=== PATIENT | male | born 1940 | race Caucasian/White ===

== ENCOUNTER 2022-08-04 17:08 | Outpatient (CLI) | payer MEDICARE, OTHER | END 2022-08-04 17:09 | disposition left against medical advice (07) | LOC: EMS 17:08 | DX: R53.1 Weakness (principal); R53.83 Other fatigue; Z72.820 Sleep deprivation ==

== ENCOUNTER 2022-08-07 18:31 | Emergency (ER) | payer MEDICARE, OTHER ==
[2022-08-07] MEDS ORDERED: ALPRAZolam 0.25 MG TABLET PO STA (19:48)
--- NOTE | 2022-08-07 19:51 | ED Physician Documentation ---
History of Present Illness - Stated complaint Stated Complaint: UNABLE TO SLEEP - Chief complaint Chief Complaint: General - History obtained from History obtained from: Patient - Additonal information Additional information: 82-year-old gentleman presents accompanied by his as he ran out or misplaced his alprazolam about a week ago and has not been able to sleep. He also has not been eating or drinking well. He had been taking it for years, half a milligram in the afternoon and 1 mg at bedtime. He is considering moving here from [facility] here. Review of Systems Constitutional: denies: Fever, Chills Cardiac: denies: Chest pain / pressure, Palpitations Respiratory: denies: Dyspnea, Cough GI: denies: Abdominal Pain PD PAST MEDICAL HISTORY - Present Medications Home Medications: Ambulatory Orders Medication Instructions Recorded Confirmed Alprazolam [Xanax] 1 mg PO BID #10 tablet 08/07/22 - Allergies Allergies/Adverse Reactions: Allergies Allergy/AdvReac Type Severity Reaction Status Date / Time No Known Drug Allergies Allergy Verified 08/07/22 18:45 PD ED PE NORMAL - Vitals Vital signs reviewed: Yes - General General: Alert and oriented X 3, No acute distress - Neuro Neuro: Alert and oriented X 3, Normal speech - Psych Psych: Normal mood, Normal affect Results - Vitals Vitals: Vital Signs - 24 hr 08/07/22 08/07/22 18:47 19:53 Temperature 36.3 C L 36.4 C L Heart Rate 89 82 Respiratory 18 18 Rate Blood Pressure 154/66 H 149/65 H O2 Saturation 97 97 Oxygen O2 Source Room air PD MEDICAL DECISION MAKING - ED course ED course: 82-year-old gentleman presents with benzodiazepine withdrawal. Discussed with him that while I would be happy to give him a short prescription for his refill, it is not customary or safe to be getting refills for controlled substances from the emergency department and further refills would need to come from his primary care physician. Departure - Departure Disposition: 01 Home, Self Care Clinical Impression: Acute insomnia Condition: Good Record reviewed to determine appropriate education?: Yes Instructions: ED Withdrawal Benzodiazepine Follow-Up: [facility] [Provider Group] Prescriptions: Alprazolam [Xanax] 1 mg PO BID #10 tablet Comments: I sent a prescription for a weeks worth of your medication to the [facility]. It is located at [address] [place] [address], [id number] . Per policy we cannot give you other refills of chronic narcotics or sedatives, further refills must come from your primary care physician. Discharge Date/Time: 08/07/22 19:57
[2022-08-07 19:54] VITALS: BP 149/65
== END 2022-08-07 19:57 | disposition home or self-care (01) ==
LOC: ED 18:31
DX: F13.239 Sedative, hypnotic or anxiolytic dependence with withdrawal, unspecified (principal); T42.4X6A Underdosing of benzodiazepines, initial encounter; Z91.138 Patient's unintentional underdosing of medication regimen for other reason; G47.00 Insomnia, unspecified
CPT/HCPCS: 99282; A9270

== ENCOUNTER 2022-10-02 23:12 | Emergency (ER) | payer MEDICARE ==
--- NOTE | 2022-10-03 01:57 | ED Physician Documentation ---
History of Present Illness - Stated complaint Stated Complaint: ANXIETY/CAN'T SLEEP/IRREG HR - Chief complaint Chief Complaint: Cardiac - History obtained from History obtained from: Patient, Family (spouse) - History of Present Illness Timing: How many days ago (3-4) Pain level now: 0 - Additonal information Additional information: patient says he ran out of his alprazolam 3-4 days ago and for the past 2 nights has been unable to sleep as a result. His prescribing physician is in [place] and he (and his , who is in ED at bedside) say that he has a refill due in the next several days. Patient c/o feeling anxious, generalized malaise. Patient was T+R from this ED 08/07 for same problem. Review of Systems Neurologic: reports: Reviewed and negative Psychiatric: reports: Anxiety, Insomnia PD PAST MEDICAL HISTORY - Past Medical History Past Medical History: Yes Cardiovascular: Congestive heart failure, Hypertension, High cholesterol, Atrial flutter, Atrial fibrillation Psych: Anxiety - Present Medications Home Medications: Ambulatory Orders Medication Instructions Recorded Confirmed Alprazolam [Xanax] 1 mg PO BID #10 tablet 08/07/22 Alprazolam [Xanax] 1 mg PO BID #10 tablet 10/03/22 - Allergies Allergies/Adverse Reactions: Allergies Allergy/AdvReac Type Severity Reaction Status Date / Time No Known Drug Allergies Allergy Verified 10/02/22 23:25 - Social History Does the pt smoke?: No Smoking Status: Never smoker PD ED PE NORMAL - Vitals Vital signs reviewed: Yes - General General: Alert and oriented X 3, No acute distress, Well developed/nourished - HEENT HEENT: PERRL, EOMI, Moist mucous membranes - Neck Neck: Supple, no meningeal sign - Neuro Neuro: Alert and oriented X 3 - Psych Psych: Normal mood, Normal affect Results - Vitals Vitals: Oxygen O2 Source Room air PD MEDICAL DECISION MAKING - ED course Complexity details: reviewed old records, considered differential, d/w patient, d/w family ED course: presents for insomnia and anxiety related to benzodiazepine withdrawal; he says he takes alprazolam twice per day (1mg tablets, with half-tablet during the day, full tablet HS). He says he has been taking this medication and this dose/schedule for many years. He and his are visiting from [place] for the holidays. I note that he was T+R from this ED 08/07/22 for same and his discharge instructions included explanation that further refills for this medication would need to be provided by his primary care provider and not the ER. I tried to explain this concept to patient and his but they do not seem to understand the reasoning behind it. Patient's shows me his most recent rx bottle and it does indicate alprazolam 1mg with the above dosing/schedule. It was filled 09/07/22 for #45 tablets. I reviewed with them that this represents a 30-day supply and thus he should not have run out of them for another few days (10/07). says that sometimes he forgets he already took a dose for sleep and wakes and takes a second dose. Given that this is only his second ED visit on records I can access ([facility], [facility]), I provided another rx for this medication and gave a dose of lorazepam in ED (should last longer than alprazolam, so as to provide more of a bridge until rx can be filled tomorrow morning). I again reviewed the concept of refills for any medication, particularly controlled substances, being optimally provided by a primary care provider and not the ER. Departure - Departure Disposition: 01 Home, Self Care Clinical Impression: Benzodiazepine withdrawal Condition: Good Instructions: ED Insomnia Prescriptions: Alprazolam [Xanax] 1 mg PO BID #10 tablet Comments: A prescription for alprazolam has been electronically submitted to [facility] in [place]. Refills for this medication need to be provided by your primary care provider. Discharge Date/Time: 10/03/22 02:38
[2022-10-03] MEDS ORDERED: LORazepam 0.5 MG TABLET PO STA (02:14)
[2022-10-03 02:31] VITALS: BP 155/61
== END 2022-10-03 02:38 | disposition home or self-care (01) ==
LOC: ED 23:12
DX: F13.239 Sedative, hypnotic or anxiolytic dependence with withdrawal, unspecified (principal); G47.00 Insomnia, unspecified; F41.9 Anxiety disorder, unspecified; I48.91 Unspecified atrial fibrillation; I48.92 Unspecified atrial flutter; I45.10 Unspecified right bundle-branch block; I10 Essential (primary) hypertension
CPT/HCPCS: 93005; 99283; 99284; A9270

== ENCOUNTER 2022-12-11 14:32 | Outpatient (CLI) | payer MEDICARE, MEDICAID | END 2022-12-11 14:33 | disposition EMS.NT | LOC: EMS 14:32 | DX: R53.1 Weakness (principal); R52 Pain, unspecified; R45.1 Restlessness and agitation; R53.83 Other fatigue ==

== ENCOUNTER 2022-12-11 15:39 | Emergency (ER) | payer MEDICARE, MEDICAID ==
--- NOTE | 2022-12-11 15:54 | ED Physician Documentation ---
PD HPI DYSPNEA - Stated complaint Stated Complaint: BODY PX - Chief complaint Chief Complaint: General - History obtained from History obtained from: Patient, Family (spouse gives corroberating information.) - History of Present Illness Timing - onset: How many days ago (2-3) Timing - onset during: Light activity Timing - details: Gradual onset (he has feeling of anxious, unable to sleep, shaky some today as well. Some nausea but no vomiting. Has had similar symptoms with benzo withdrawal twice in the past. He states next refill is available on , which is 4 days. Has been out for 3 days and feeling symptoms.) Similar symptoms before: Diagnosis (has had similar symptoms with benzo withdrawal starting twice in recent past. He states he is taking the Xanax bid rather than 1/2 in AM and 1 at night, so is short.) Recently seen: Emergency Dept Review of Systems Constitutional: reports: Myalgias. denies: Fever, Chills Psychiatric: reports: Anxiety, Insomnia. denies: Depressed, Suicidal PD PAST MEDICAL HISTORY - Past Medical History Cardiovascular: Congestive heart failure, Hypertension, High cholesterol, Atrial flutter, Atrial fibrillation Psych: Anxiety - Present Medications Home Medications: Ambulatory Orders Medication Instructions Recorded Confirmed Alprazolam [Xanax] 1 mg PO BID #10 tablet 08/07/22 Alprazolam [Xanax] 1 mg PO BID #10 tablet 10/03/22 Alprazolam [Xanax] 1 mg PO BID #10 tablet 12/11/22 - Allergies Allergies/Adverse Reactions: Allergies Allergy/AdvReac Type Severity Reaction Status Date / Time No Known Drug Allergies Allergy Verified 12/11/22 15:49 - Social History Does the pt smoke?: No Smoking Status: Never smoker PD ED PE NORMAL - Vitals Vital signs reviewed: Yes - General General: Alert and oriented X 3, No acute distress, Well developed/nourished - Cardiac Cardiac: RRR, No murmur - Respiratory Respiratory: Clear bilaterally - Derm Derm: Normal color, Warm and dry - Neuro Neuro: Alert and oriented X 3, No motor deficit, Normal speech Results - Vitals Vitals: Vital Signs - 24 hr 12/11/22 12/11/22 12/11/22 15:43 15:58 16:40 Temperature 36.6 C Heart Rate 65 65 70 Respiratory 18 20 16 Rate Blood Pressure 159/66 H 167/68 H 163/77 H O2 Saturation 98 97 100 Oxygen O2 Source Room air PD Medical Decision Making - ED course Complexity details: reviewed old records (2 prior ER visits for similar. ), considered differential (we talked that we would not be fillling Rxs for meds again due to overtaking the rx. He would like to change to different med and I discussed that that would need to be gradual tapering of benzo and start different med. asked ideas of other meds to discuss wiht pMD. also wanting local pcp. ), d/w patient, d/w family Departure - Departure Disposition: Home, Self Care Clinical Impression: Benzodiazepine withdrawal, Generalized muscle ache, Insomnia Condition: Stable Record reviewed to determine appropriate education?: Yes Follow-Up: [facility] [Provider Group] Prescriptions: Alprazolam [Xanax] 1 mg PO BID #10 tablet Comments: call [facility] primary care clinic or [facility] [phone] and see who is taking new patients sooner/accepts your insurance/etc. Obtain a local primary care provider. I sent a short-term prescription for your medication to [facility] in [place]. They are closed today but it should be available tomorrow. Continue with your usual Xanax/alprazolam medications. Get the refill later this week as scheduled. For now continue with the current medications. Obtain new local provider or in discussion with your current primary care provider, you can look at slowly tapering down from the Xanax used for sleep and anxiety and exchange architect to a different medication that would not have the tolerance buildup and therefore not the withdrawal that is associated with the benzodiazepines yet still try to work on sleep/insomnia. Other medications that are used for sleep and anxiety can be trazodone, Seroquel, hydroxyzine, zolpidem/Ambien (for sleep in particular), or other ones as well. Discussed transitioning over to 1 of these others while tapering down on the alprazolam/Xanax. This will need to occur over an extended period of a month or two months. Discharge Date/Time: 12/11/22 16:50
[2022-12-11] MEDS ORDERED: ALPRAZolam 0.25 MG TABLET PO STA (16:17)
[2022-12-11 16:50] VITALS: BP 163/77
== END 2022-12-11 16:50 | disposition home or self-care (01) ==
LOC: ED 15:39
DX: F41.9 Anxiety disorder, unspecified (principal); R25.1 Tremor, unspecified; R11.0 Nausea; F13.239 Sedative, hypnotic or anxiolytic dependence with withdrawal, unspecified; T42.4X5A Adverse effect of benzodiazepines, initial encounter
CPT/HCPCS: 99282; 99284; A9270

== ENCOUNTER 2023-02-01 20:14 | Emergency (ER) | payer MEDICARE, MEDICAID ==
[2023-02-01 20:29] VITALS: BP 154/49
[2023-02-01] MEDS ORDERED: ALPRAZolam 0.25 MG TABLET PO STA (21:03)
--- NOTE | 2023-02-01 21:06 | ED Physician Documentation ---
History of Present Illness - Stated complaint Stated Complaint: MED REFILL - Chief complaint Chief Complaint: General - History obtained from History obtained from: Patient - History of Present Illness Timing: Today Pain level max: 0 Pain level now: 0 - Additonal information Additional information: Patient is an 82-year-old male who states that he is out of his Alprazolam and requesting a refill. The patient's daughter is with him. Apparently he does have some memory issues and occasionally will take extra medication, causing him to run out early. He has been on this medication for approximately 25 years. He is currently asymptomatic. Last dose was last night. Review of Systems Constitutional: denies: Fever GI: denies: Vomiting PD PAST MEDICAL HISTORY - Past Medical History Past Medical History: Yes Cardiovascular: Congestive heart failure, Hypertension, High cholesterol, Atrial flutter, Atrial fibrillation Respiratory: None Neuro: None Endocrine/Autoimmune: None GI: None : None HEENT: None Psych: Anxiety Musculoskeletal: None Derm: None - Present Medications Home Medications: Ambulatory Orders Medication Instructions Recorded Confirmed Alprazolam [Xanax] 1 mg PO BID #10 tablet 08/07/22 Alprazolam [Xanax] 1 mg PO BID #10 tablet 10/03/22 Alprazolam [Xanax] 1 mg PO BID #10 tablet 12/11/22 02/01/23 Alprazolam [Xanax] 1.5 mg PO UD #15 tablet 02/01/23 - Allergies Allergies/Adverse Reactions: Allergies Allergy/AdvReac Type Severity Reaction Status Date / Time No Known Drug Allergies Allergy Verified 12/11/22 15:49 - Social History Does the pt smoke?: No Smoking Status: Never smoker Does the pt drink ETOH?: No Does the pt have substance abuse?: No - Immunizations Immunizations are current?: No - POLST Patient has POLST: No PD ED PE NORMAL - Vitals Vital signs reviewed: Yes - General General: Alert and oriented X 3, No acute distress - HEENT HEENT: Moist mucous membranes - Neck Neck: Supple, no meningeal sign - Cardiac Cardiac: RRR, Strong equal pulses - Respiratory Respiratory: No respiratory distress, Clear bilaterally - Derm Derm: Warm and dry - Neuro Neuro: Alert and oriented X 3 Results - Vitals Vitals: Vital Signs - 24 hr 02/01/23 02/01/23 02/01/23 20:25 20:44 21:27 Temperature 36.4 C L Heart Rate 70 Respiratory 17 16 16 Rate Blood Pressure 154/49 H O2 Saturation 97 Oxygen O2 Source Room air PD Medical Decision Making - ED course Complexity details: reviewed old records, considered differential, d/w patient, d/w family ED course: We will prescribe enough alprazolam to get him to his next appointment. The patient and family were counseled that we cannot continue to refill this medication from the emergency department when he runs out early. Recommend that they find a way to ensure that he does not take extra doses of his medication. They will look into a timed and locked medication box for him. Patient and family counseled regarding signs and symptoms for which I believe and urgent re- evaluation would be necessary. Patient with good understanding of and agreement to plan and is comfortable going home at this time This document was made in part using voice recognition software. While efforts are made to proofread this document, sound alike and grammatical errors may occur. Departure - Departure Disposition: 01 Home, Self Care Clinical Impression: Medication refill Condition: Good Instructions: Alprazolam tablets Follow-Up: your,doctor next week as scheduled [Other] Prescriptions: Alprazolam [Xanax] 1.5 mg PO UD #15 tablet Comments: Your prescription was sent to [facility] in [place]. I would recommend that his medications be placed in a locked time and automatic pill dispenser. You can find these online at store such as [employer]. You can also ask [employer] to place the medication into a blister pack. Discharge Date/Time: 02/01/23 21:28
== END 2023-02-01 21:28 | disposition home or self-care (01) ==
LOC: ED 20:14
DX: Z76.0 Encounter for issue of repeat prescription (principal)
CPT/HCPCS: 99281; 99282; A9270

== ENCOUNTER 2023-04-26 23:02 | Outpatient (CLI) | payer MEDICARE, MEDICAID | END 2023-04-26 23:59 | disposition critical access hospital (66) | LOC: EMS 23:02 | DX: R10.12 Left upper quadrant pain (principal); R07.89 Other chest pain; R19.4 Change in bowel habit | CPT/HCPCS: A0425; A0427 ==

== ENCOUNTER 2023-04-26 23:33 | Emergency (ER) | payer MEDICARE, MEDICAID ==
[2023-04-26] MEDS ORDERED: SODIUM CHLORIDE 0.9% 500 ML IV STA (23:43)
--- NOTE | 2023-04-26 23:46 | ED Physician Documentation ---
History of Present Illness - Stated complaint Stated Complaint: ABD PAIN - History obtained from History obtained from: Patient - Additonal information Additional information: 82-year-old man presents to the ED brought in by EMS with chief complaint of left upper quadrant and left lower rib cage pain for the past 2 days, constant, worse with movement, breath, pressing on, improved status post 50 of fentanyl administered by EMS. Patient has history of high blood pressure, hyperlipidemia, pacemaker. Review of Systems Constitutional: denies: Fever GI: reports: Abdominal Pain. denies: Nausea, Vomiting : reports: Dysuria, Frequency PD PAST MEDICAL HISTORY - Past Medical History Cardiovascular: Congestive heart failure, Hypertension, High cholesterol, Atrial flutter, Atrial fibrillation Respiratory: None Neuro: None Endocrine/Autoimmune: None GI: None : None HEENT: None Psych: Anxiety Musculoskeletal: None Derm: None - Present Medications Home Medications: Ambulatory Orders Medication Instructions Recorded Confirmed Alprazolam [Xanax] 1 mg PO BID #10 tablet 08/07/22 Alprazolam [Xanax] 1 mg PO BID #10 tablet 10/03/22 Alprazolam [Xanax] 1 mg PO BID #10 tablet 12/11/22 02/01/23 Alprazolam [Xanax] 1.5 mg PO UD #15 tablet 02/01/23 Cefpodoxime Proxetil [Vantin] 200 mg PO Q12H #28 tablet 04/27/23 Ketorolac [Toradol] 10 mg PO Q6H PRN #30 tablet 04/27/23 - Allergies Allergies/Adverse Reactions: Allergies Allergy/AdvReac Type Severity Reaction Status Date / Time No Known Drug Allergies Allergy Verified 04/26/23 23:50 - Social History Does the pt smoke?: No Smoking Status: Never smoker Does the pt drink ETOH?: No Does the pt have substance abuse?: No - Immunizations Immunizations are current?: No - POLST Patient has POLST: No PD ED PE NORMAL - Vitals Vital signs reviewed: Yes - General General: Alert and oriented X 3, No acute distress, Well developed/nourished - HEENT HEENT: Atraumatic, PERRL, EOMI - Neck Neck: Supple, no meningeal sign - Cardiac Cardiac: RRR - Respiratory Respiratory: No respiratory distress, Clear bilaterally - Abdomen Abdomen: Other (Left upper quadrant And left flank tender to palpation. Otherwise nontender nondistended) - Derm Derm: Normal color, Warm and dry Results - Vitals Vitals: Vital Signs - 24 hr 04/26/23 04/26/23 04/27/23 23:45 23:55 02:10 Temperature 36.4 C L Heart Rate 94 88 86 Respiratory 18 16 16 Rate Blood Pressure 149/71 H 149/71 H 144/69 H O2 Saturation 100 97 99 04/27/23 04:00 Temperature Heart Rate 94 Respiratory 16 Rate Blood Pressure 151/68 H O2 Saturation 100 Oxygen O2 Source Room air - Labs Labs: Laboratory Tests 04/26/23 04/26/23 04/26/23 23:53 23:58 23:58 WBC 6.6 RBC 5.07 Hgb 15.1 Hct 45.9 MCV 90.5 MCH 29.8 MCHC 32.9 RDW 14.1 Plt Count 203 MPV 9.5 Neut # (Auto) 4.4 Lymph # (Auto) 1.6 [place] # (Auto) 0.6 Eos # (Auto) 0.1 Baso # (Auto) 0.0 Absolute Nucleated RBC 0.00 Nucleated RBC % 0.0 Sodium 136 Potassium 4.5 Chloride 103 Carbon Dioxide 26 Anion Gap 7.0 BUN 28 H Creatinine 1.1 Estimated GFR (MDRD) 64 L Glucose 107 H Calcium 9.2 Total Bilirubin 0.6 AST 15 ALT 19 Alkaline Phosphatase 87 Total Protein 7.8 Albumin 3.9 Globulin 3.9 Albumin/Globulin Ratio 1.0 Lipase 27 Urine Color YELLOW Urine Clarity SL. CLOUDY Urine pH 6.5 Ur Specific [place] 1.010 Urine Protein NEGATIVE Urine Glucose (UA) NEGATIVE Urine Ketones NEGATIVE Urine Occult Blood MODERATE H Urine Nitrite NEGATIVE Urine Bilirubin NEGATIVE Urine Urobilinogen 0.2 (NORMAL) Ur Leukocyte Esterase LARGE H Urine RBC 6-10 H Urine WBC >25 H Ur Squamous Epith Cells RARE Squamous Urine Bacteria Few Ur Microscopic Review INDICATED Urine Culture Comments INDICATED PD Medical Decision Making - ED course ED course: 82-year-old man presented to the emergency department with left upper quadrant/flank pain for the past 2 days, found to have hematuria and positive leukocyte esterase on Urinalysis. CBC, abdominal panel unremarkable. Chest x- ray without evidence of cardiopulmonary disease per my interpretation and that of outside radiologist. Suspect UTI versus renal stones as cause for his pain. CT abdomen pelvis ordered with IV contrast to evaluate for DDX kidney stones, pyelo, colitis. BL renal stones and L mild/moderate hydro with BL renal scarring. d/w urologist at [facility] Dr. Bhatti - recommend admission [facility] for stent. spoke with their transfer center and they have no beds. Our [facility] will start calling other hospitals. Patient will be endorsed to incoming daytime ED MD at 7am shift change. d/w urology at [facility] - Jazmin Rodriguez, urology PA - agrees patient needs stents. make patient npo. there may be beds available after shift change this morning. I discussed this with the patient at length and he is not willing to wait. We went over AMA paperwork and my [facility] Aroldo signed as witness. antibiotic prescription provided. advised him to f/u at the ER at [facility] when he decides to return to the ED. Departure - Departure Disposition: 07 Against Medical Advice Clinical Impression: Pyelonephritis, Renal and ureteric calculus, Hydronephrosis Condition: Serious Instructions: Stents Ureteral, Kidney Stones, Pyelonephritis Dc Prescriptions: Ketorolac [Toradol] 10 mg PO Q6H PRN #30 tablet PRN Reason: Pain Cefpodoxime Proxetil [Vantin] 200 mg PO Q12H #28 tablet Comments: You were seen in the emergency department for kidney stones and kidney infection. We offered to transfer you to another hospital but you decided to go home AGAINST MEDICAL ADVICE. Please go to [facility] emergency department if you decide to go back to the hospital because they have urology services.I am printing a prescription for Toradol, pain medicine and an antibiotic.
[2023-04-27 00:03] LABS: BILIRUBIN,URINE NEGATIVE (NEGATIVE); GLUCOSE, URINE (UA) NEGATIVE (NEGATIVE); KETONES,URINE (UA) NEGATIVE (NEGATIVE); LEUKOCYTE ESTERASE, URINE LARGE (NEGATIVE); NITRITE,URINE NEGATIVE (NEGATIVE); OCCULT BLOOD,URINE MODERATE (NEGATIVE); PH,URINE 6.5 PH (5.0-7.5); PROTEIN,URINE NEGATIVE (NEGATIVE); UROBILINOGEN,URINE 0.2 (NORMAL) E.U./dL (NORMAL)
[2023-04-27 00:04] LABS: CLARITY,URINE SL. CLOUDY (CLEAR)
[2023-04-27 00:07] LABS: BASOPHILS % (AUTO) 0.6 %; EOSINOPHILS # (AUTO) 0.1 10^3/uL (0.0-0.7); EOSINOPHILS % (AUTO) 1.7 %; HCT - HEMATOCRIT 45.9 % (42.0-52.0); HGB - HEMOGLOBIN 15.1 g/dL (14.0-18.0); LYMPHOCYTES # (AUTO) 1.6 10^3/uL (1.5-3.5); LYMPHOCYTES % (AUTO) 23.3 %; MEAN CORPUSCULAR HEMOGLOBIN 29.8 pg (27.0-31.0); MEAN CORPUSCULAR HGB CONC 32.9 g/dL (32.0-36.0); MEAN CORPUSCULAR VOLUME 90.5 fL (80.0-94.0); MEAN PLATELET VOLUME 9.5 fL (7.4-11.4); MONOCYTES # (AUTO) 0.6 10^3/uL (0.0-1.0); MONOCYTES % (AUTO) 8.3 %; NEUTROPHILS # (AUTO) 4.4 10^3/uL (1.5-6.6); NEUTROPHILS % (AUTO) 65.6 %; PLT - PLATELET COUNT 203 10^3/uL (130-450); RED BLOOD COUNT 5.07 10^6/uL (4.70-6.10); RED CELL DISTRIBUTION WIDTH 14.1 % (12.0-15.0); WHITE BLOOD COUNT 6.6 x10^3/uL (4.8-10.8)
[2023-04-27 00:14] LABS: BACTERIA,URINE Few /HPF (None Seen); SQUAMOUS EPITHELIAL CELL,UR RARE Squamous (<= Few); WBC,URINE >25 /HPF (0-3)
[2023-04-27 00:17] LABS: ALBUMIN 3.9 g/dL (3.2-5.5); BILIRUBIN,TOTAL 0.6 mg/dL (0.2-1.0); CALCIUM 9.2 mg/dL (8.5-10.3); CREATININE 1.1 mg/dL (0.6-1.2); POTASSIUM 4.5 mmol/L (3.5-5.0); TOTAL PROTEIN 7.8 g/dL (6.7-8.2)
--- NOTE | 2023-04-27 00:54 | XRAY Report ---
PROCEDURE: Chest 2 View X-Ray INDICATIONS: L lower ribcage / LUQ pain TECHNIQUE: 2 views of the chest were acquired. COMPARISON: None. FINDINGS: Surgical changes and devices: Right chest wall subclavian pacemaker redemonstrated with leads projec ting on the right atrium, right ventricle, and coronary sinus.. Lungs and pleura: No pleural effusions or pneumothorax. Lungs are clear. Mediastinum: Mediastinal contours appear normal. Heart size is normal. Bones and chest wall: No suspicious bony lesions. No displaced fracture identified. Overlying soft tissues appear unremarkable. IMPRESSION: No acute cardiopulmonary disease. Reviewed by: Kingsley Hebert MD on 04/27/2023 12:53 AM PDT Approved by: Kingsley Hebert MD on 04/27/2023 12:53 AM PDT Station ID: [id number]
[2023-04-27] MEDS ORDERED: cefTRIAXone 1 GM in SODIUM CHLORIDE 0.9% MINIBAG 100 ML IV STA (01:19)
[2023-04-27] MEDS ORDERED: SODIUM CHLORIDE 0.9% 1,000 ML IV STA (01:27)
[2023-04-27] MEDS ORDERED: iohexoL-300 100 ML VIAL ONE (01:27)
[2023-04-27] MEDS ORDERED: cefTRIAXone 1 GM VIAL ONE (01:35)
[2023-04-27] MEDS ORDERED: iohexoL-300 100 ML VIAL IVP ONE (02:07)
[2023-04-27] MEDS ORDERED: KETOROLAC 15 MG/ML VIAL IVP STA (02:16)
[2023-04-27 04:53] VITALS: BP 137/87
--- NOTE | 2023-04-27 09:11 | CT Report ---
PROCEDURE: ABDOMEN/PELVIS W INDICATIONS: hematuria, uti, L flank pain CONTRAST: Omni 300 100ml TECHNIQUE: After the administration of IV contrast, 5 mm thick sections acquired from the diaphragms to the symp hysis. 5 mm thick coronal and sagittal reformats were acquired. For radiation dose reduction, the f ollowing was used: automated exposure control, adjustment of mA and/or kV according to patient size. COMPARISON: None. FINDINGS: Image quality: Excellent. Lung bases and heart: Bibasilar scars and atelectasis. Heart size is normal. There is a cardiac pacem roshan. Liver: There are multiple low-density nodules in liver, most likely cysts. No solid mass. Liver is no rmal in size. Gallbladder and biliary tree: Gallbladder is contracted. There may be a gallstone. No biliary dilatio n. Spleen: No splenomegaly. Pancreas: No pancreatic ductal dilation. Adrenals: No adrenal nodule. Kidneys and ureters: There is moderate left hydronephrosis and trace right renal pelviectasis. Bilate ral renal cortical thinning and cortical scars. No renal stones. No renal cystic lesion which require s follow up. No solid mass. Bilateral ureteral reimplantations. There is moderate left hydroureter and mild right hydroureter. Jose Alfredo th ureters are dilated to the level of UVJ. Prostate is surgically absent. Bowel and peritoneum: No bowel distension. No pathologic free fluid. Diverticulosis without acute div erticulitis. Lymph nodes: No central or retroperitoneal adenopathy. Vessels: No infrarenal aortic aneurysm. PELVIS Reproductive organs: Unremarkable. Bladder: No abnormal wall thickening, accounting for underdistension. Pelvic lymph nodes: No pelvic adenopathy by size criteria. Bones: No aggressive osseous abnormality. Other: No significant ventral or inguinal hernia. IMPRESSION: 1. Bilateral ureteral reimplantations. There is moderate left hydronephrosis and hydroureter, and mil d trace right renal pelviectasis and mild right hydroureter. Both ureters are dilated to the level of UVJs. No obstructive stones is identified. There may be strictures at the reimplantation UVJs. Rule out obstruction masses. 2. Bilateral renal cortical thinning and renal cortical scars, left great than right. No renal stones . 3. Prostatectomy. 4. Diverticulosis without acute diverticulitis. No significant discrepancy with the preliminary interpretation. Reviewed by: Gemma Oswald MD on 04/27/2023 9:10 AM PDT Approved by: Gemma Oswald MD on 04/27/2023 9:10 AM PDT Station ID: [id number]
== END 2023-04-27 05:13 | disposition left against medical advice (07) ==
LOC: EDUNIT# → ED 23:33
DX: N10 Acute pyelonephritis (principal); N20.0 Calculus of kidney; I10 Essential (primary) hypertension; I48.91 Unspecified atrial fibrillation
CPT/HCPCS: 36415; 71046; 74177; 80053; 81001; 83690; 85025; 87086; 96365; 96375; 99284; Q9967; 81003

== ENCOUNTER 2023-05-05 17:40 | Outpatient (CLI) | payer MEDICARE, MEDICAID | END 2023-05-05 17:41 | disposition EMS.NT | LOC: EMS 17:40 | DX: R31.9 Hematuria, unspecified (principal); Z79.01 Long term (current) use of anticoagulants ==

== ENCOUNTER 2023-12-14 17:09 | Outpatient (CLI) | payer MEDICARE, MEDICAID | END 2023-12-14 17:10 | disposition critical access hospital (66) | LOC: EMS 17:09 | DX: R47.81 Slurred speech (principal); R26.2 Difficulty in walking, not elsewhere classified; R53.1 Weakness; R41.82 Altered mental status, unspecified | CPT/HCPCS: A0425; A0429 ==

== ENCOUNTER 2023-12-14 17:45 | Emergency (ER) | payer MEDICARE, MEDICAID ==
[2023-12-14 18:23] LABS: BASOPHILS % (AUTO) 0.4 %; EOSINOPHILS # (AUTO) 0.1 10^3/uL (0.0-0.7); EOSINOPHILS % (AUTO) 0.6 %; HCT - HEMATOCRIT 48.6 % (42.0-52.0); HGB - HEMOGLOBIN 15.7 g/dL (14.0-18.0); LYMPHOCYTES # (AUTO) 1.4 10^3/uL (1.5-3.5); LYMPHOCYTES % (AUTO) 13.3 %; MEAN CORPUSCULAR HGB CONC 32.3 g/dL (32.0-36.0); MEAN CORPUSCULAR VOLUME 92.9 fL (80.0-94.0); MEAN PLATELET VOLUME 9.9 fL (7.4-11.4); MONOCYTES # (AUTO) 0.8 10^3/uL (0.0-1.0); MONOCYTES % (AUTO) 7.4 %; NEUTROPHILS # (AUTO) 8.3 10^3/uL (1.5-6.6); PLT - PLATELET COUNT 198 10^3/uL (130-450); RED BLOOD COUNT 5.23 10^6/uL (4.70-6.10); RED CELL DISTRIBUTION WIDTH 13.9 % (12.0-15.0); WHITE BLOOD COUNT 10.6 x10^3/uL (4.8-10.8)
[2023-12-14 18:40] LABS: ALBUMIN 4.1 g/dL (3.2-5.5); ALBUMIN/GLOBULIN RATIO 1.2 (1.0-2.2); ALKALINE PHOSPHATASE 109 IU/L (42-121); ALT ALANINE AMINOTRANSFERASE 17 IU/L (10-60); AST ASPARTATE AMINOTRANSFERASE 15 IU/L (10-42); BILIRUBIN,TOTAL 0.6 mg/dL (0.2-1.0); BUN - BLOOD UREA NITROGEN 29 mg/dL (6-20); CALCIUM 9.8 mg/dL (8.5-10.3); CARBON DIOXIDE - CO2 27 mmol/L (21-32); CHLORIDE 103 mmol/L (101-111); CREATININE 1.4 mg/dL (0.6-1.3); GFR - MDRD 48 (>89); GLUCOSE 121 mg/dL (74-104); POTASSIUM 4.3 mmol/L (3.5-4.5); SODIUM 137 mmol/L (135-145); TOTAL PROTEIN 7.6 g/dL (6.4-8.9)
--- NOTE | 2023-12-14 18:41 | XRAY Report ---
PROCEDURE: Chest 1V INDICATIONS: Chest Pain TECHNIQUE: One view of the chest was acquired. COMPARISON: 05/26/2023 FINDINGS: Surgical changes and devices: Multi lead right-sided pacer. Overlying monitoring wires. Lungs and pleura: No pleural effusions or pneumothorax. Lungs are clear. Mediastinum: Mediastinal contours appear normal. Heart size is normal. Bones and chest wall: No suspicious bony lesions. Overlying soft tissues appear unremarkable. IMPRESSION: No acute cardiopulmonary process. Reviewed by: Smitha Flores MD on 12/14/2023 6:40 PM PST Approved by: Smitha Flores MD on 12/14/2023 6:40 PM PST Station ID: [id number]
[2023-12-14 18:42] LABS: LIPASE < 10 U/L (11-82)
[2023-12-14 18:43] LABS: TROPONIN I HIGH SENSITIVITY 15.7 ng/L (2.3-19.7)
--- NOTE | 2023-12-14 18:48 | ED Physician Documentation ---
PD HPI ALTERED MENTAL STATUS - Stated complaint Stated Complaint: WEAKNESS - Chief complaint Chief Complaint: Neuro - Additional information Additional information: 83-year-old male with complex past medical history including bladder cancer r equiring a neobladder, tobacco dependence, pacemaker, CAD, A-fib. Patient is here with his who gives most of the history reports that yesterday when he awoke he had strokelike symptoms. Patient was having a hard time conversing, Difficulty eating and drinking per patient's , difficulty with walking. Patient's also reports that he has not been ambulating for about the last year or so, she does not know of 1 side of his body is more weak than the other or not. She also reports that they have been having difficulty getting patient in with a primary care provider and so he made the decision to go off of all of his medications including atorvastatin and cardiac medications that he supposed to be on she does not member all the names of them. PD PAST MEDICAL HISTORY - Past Medical History Past Medical History: Yes Cardiovascular: Congestive heart failure, Hypertension, High cholesterol, Atrial flutter, Atrial fibrillation Respiratory: None Neuro: None Endocrine/Autoimmune: None GI: None : None HEENT: None Psych: Anxiety Musculoskeletal: None Derm: None Other Past Medical History: insomnia - Present Medications Home Medications: Ambulatory Orders Medication Instructions Recorded Confirmed No Known Home Medications 12/14/23 12/14/23 - Allergies Allergies/Adverse Reactions: Allergies Allergy/AdvReac Type Severity Reaction Status Date / Time No Known Drug Allergies Allergy Verified 12/14/23 17:47 - Social History Does the pt smoke?: No Smoking Status: Never smoker Does the pt drink ETOH?: No Does the pt have substance abuse?: No - Immunizations Immunizations are current?: No - POLST Patient has POLST: No PD ED PE NORMAL - Vitals Vital signs reviewed: Yes - General General: Well developed/nourished, Other (AOx2) - HEENT HEENT: Other (Left facial droop) - Cardiac Cardiac: Other (pacemkaker, Irregularly irregular) - Respiratory Respiratory: Other (bilateral ronchi, no wheezing) - Abdomen Abdomen: Normal bowel sounds, Soft, Non tender - Back Back: No spinal TTP - Derm Derm: Normal color, Warm and dry, No rash - Extremities Extremities: Other (Left upper extremity, left lower extremity weakness) - Free text exam Free text exam: Neuro: Positive left pronator drift to upper and lower extremity, left facial droop, expressive aphasia, patient alert and oriented to self and place only. When asked the patient what year it is he said it is 1943 unable to say who the president is what city or state he is in. Patient overall poor historian unable to describe or inform me if he has any sensation deficits. PD ED PE EXPANDED - Neuro Neuro: Confused Results - Vitals Vitals: Vital Signs - 24 hr 12/14/23 12/14/23 12/14/23 17:47 19:52 21:00 Temperature 36.8 C Heart Rate 81 80 82 Respiratory 14 18 17 Rate Blood Pressure 140/63 H 149/79 H 121/93 H O2 Saturation 97 99 97 12/14/23 22:38 Temperature Heart Rate 77 Respiratory 18 Rate Blood Pressure 125/57 L O2 Saturation 94 Oxygen O2 Source Room air - EKG (time done) 2135 EKG releavant findings:: EKG personally interpreted by author of this note. Relevant findings are: Rate: Rate (enter#) (85) Rhythm: Atrial fibrillation [place]: Normal Intervals: Prolonged CA, RBBB QRS: Normal Ischemia: T wave inversion Computer interpretation: Agree with computer - Labs Labs: Laboratory Tests 12/14/23 12/14/23 18:14 18:14 WBC 10.6 RBC 5.23 Hgb 15.7 Hct 48.6 MCV 92.9 MCH 30.0 MCHC 32.3 RDW 13.9 Plt Count 198 MPV 9.9 Neut # (Auto) 8.3 H Lymph # (Auto) 1.4 L [place] # (Auto) 0.8 Eos # (Auto) 0.1 Baso # (Auto) 0.0 Absolute Nucleated RBC 0.00 Nucleated RBC % 0.0 Sodium 137 Potassium 4.3 Chloride 103 Carbon Dioxide 27 Anion Gap 7.0 BUN 29 H Creatinine 1.4 H Estimated GFR (MDRD) 48 L Glucose 121 H Calcium 9.8 Total Bilirubin 0.6 AST 15 ALT 17 Alkaline Phosphatase 109 Troponin I High Sens 15.7 Total Protein 7.6 Albumin 4.1 Globulin 3.5 Albumin/Globulin Ratio 1.2 Lipase < 10 L - Rads (name of study) chest xray Relevant Findings:: Final report received, EMP independent interpretation of test (No consolidation, no acute cardiopulmonary abnormalities), Other (No consolidation, no acute cardiopulmonary abnormalities) Angio head and neck Relevant Findings:: Final report received, EMP independent interpretation of test (Filling deficit within the distal right MCA territory, ischemia of the right frontal lobe, no acute abnormalities visualized in the arteries of the neck), Other (Filling deficit within the distal right MCA territory, ischemia of the right frontal lobe, no acute abnormalities visualized in the arteries of the neck) CT head without Relevant Findings:: Final report received (Right MCA territory ischemia with loss of gory white matter differentiation. Moderate edema, right to left midline shift of 5 mm, no herniation chest x-ray), EMP independent interpretation of test PD Medical Decision Making - ED course ED course: This patient presents with symptoms concerning for acute CVA versus TIA. labs with no hypoglycemia, metabolic derangements, and clinical picture does not suggest other stroke mimic. Patient has significant left-sided deficits, expressive aphasia concerning for aspiration, left-sided weakness, pronator drift, NIH score of 14. Chest x-ray: No consolidation, no acute cardiopulmonary abnormalities Angio head and neck: Filling deficit within the distal right MCA territory, ischemia of the right frontal lobe, no acute abnormalities visualized in the arteries of the neck CT head without: Right MCA territory ischemia with loss of gory white matter differentiation. Moderate edema, right to left midline shift of 5 mm, no herniation chest x-ray ECG completed at 2136 Atrial fibrillation, heart rate 85, right bundle branch block, QTc 47, normal axis, no ST elevation, T wave inversions in the anterior leads CBC complete, no leukocytosis, no anemia neutrophils are slightly elevated at 8.3, lymphocytes suppressed at 1.4. No electrolyte abnormalities, BUN is elevated at 29, creatinine 1.4, GFR 48 this is most likely prerenal due to the dehydration as patient has not been able to eat and drink properly since stroke symptom onset. I originally spoke with telemetry hospitalist who believes that patient would be best suited at a higher level of care facility with the midline shift and patient and patient's wanting full interventions and would like to remain full code. I then spoke with teleneurologist who says that with patient's age and that the stroke symptoms started yesterday morning 12/12/2023 at 8 AM patient far exceeds any window of any sort of intervention at this time. He is not a candidate for craniotomy not a candidate for thrombectomy and certainly not a candidate for any sort of anticoagulation therapy treated for strokelike symptoms. Patient was given 325 mg of rectal aspirin per suggestion of neurology and to allow permissive hypertension. Neurology agrees with telemetry hospitalist that patient would benefit from higher level of care. I then spoke with Dr. Herminio [facility] neurologist who has agreed to accept the patient for MRI tomorrow as we are unable to provide MRI with patient's pacemaker. He agrees with telemetry neurologist that there is no intervention that they will be able to do at this time that they will do an MRI for further evaluation. I then spoke with Dr. Hernandez hospitalist with [facility] who has agreed to accept the patient for MRI further stroke workup and will initiate stroke rehabilitation. Patient will transfer via ALS to [facility], greatly appreciate their support with this complex patient. Patient and patient's have been updated of the findings and the results and have agreed to transfer at this time. Departure - Departure Disposition: 02 Transfer Acute Care Hosp Clinical Impression: Cerebrovascular accident (CVA) Qualifiers: CVA mechanism: unspecified Qualified Code(s): I63.9 - Cerebral infarction, unspecified Condition: Stable Forms: PCP List
[2023-12-14] MEDS ORDERED: iohexoL-300 100 ML VIAL ONE (19:26)
[2023-12-14] MEDS ORDERED: ACETAMINOPHEN 325 MG TABLET PO STA (19:31)
[2023-12-14] MEDS ORDERED: iohexoL-300 100 ML VIAL IVP ONE (20:07)
[2023-12-14] MEDS ORDERED: KETOROLAC 30 MG/ML VIAL IVP STA (20:12)
--- NOTE | 2023-12-14 20:20 | CT Report ---
PROCEDURE: Head WO INDICATIONS: left sided weakness, [normal yesterday morning. TECHNIQUE: Noncontrast 4.5 mm thick angled axial sections acquired from the foramen magnum to the vertex. For r adiation dose reduction, the following was used: automated exposure control, adjustment of mA and/or kV according to patient size. COMPARISON: None. FINDINGS: Image quality: Excellent. CSF spaces: Basal cisterns are patent. No extra-axial fluid collections. Ventricles are normal in size and shape. Brain: Right MCA segment of xiao-white matter differentiation, predominantly affecting the right MCA territory. No hemorrhage. Moderate edema, with hyqfr-cc-xukw midline shift of 5 mm. Skull and face: Calvarium and visualized facial bones are intact, without suspicious lesions. Sinuses: Visualized sinuses and mastoids are clear. IMPRESSION: Right MCA territory ischemia, with loss of xiao-white matter differentiation. Associated moderate mario ma, with [id number] midline shift of 5 mm, and no herniation. Above discussed with Chacho Parr DNP at the time of dictation. Reviewed by: Geovani Monte MD on 12/14/2023 8:18 PM PST Approved by: Geovani Monte MD on 12/14/2023 8:18 PM PST Station ID: [id number]
--- NOTE | 2023-12-14 20:24 | CT Report ---
PROCEDURE: Angio Head/Neck INDICATIONS: left sided weakness TECHNIQUE: After the administration of intravenous contrast, 1 mm thick sections acquired from the aortic arch t hrough the [place] of [place]. 3-dimensional khxueci-pqnqgnuhz-zhrdvweneo (MIP) and/or volume renderin g reformats were acquired of the central intracranial vasculature and neck separately. For radiation dose reduction, the following was used: automated exposure control, adjustment of mA and/or kV acco rding to patient size. CONTRAST: Not reported COMPARISON: Same day head CT. FINDINGS: Image quality: Diagnostic. HEAD CT: Right MCA territory xiao-white matter differentiation loss, with moderate edema. HEAD CT ANGIOGRAPHY: Anterior circulation: Intracranial internal carotid arteries are normal in size and flow. The flow within the paired anterior cerebral arteries is normal and symmetric.. There is a filling defect with in the distal right M1 segment feeding the anterior temporal lobe on the right (series 4, image 164). The anterior communicating artery is seen. No aneurysms are seen. Posterior circulation: Visualized portions of the vertebral arteries demonstrate normal caliber, and join to form a normal appearing basilar artery. Flow within the posterior cerebral arteries is norm al and symmetric. No aneurysms are seen. NECK CT ANGIOGRAPHY: Carotid system: The great vessels demonstrate a conventional anatomy as they arise from the aortic a rch. The origins of the common carotid arteries appear patent. The common carotid arteries demonstr ate normal caliber and courses. The bifurcation regions are both widely patent. The internal caroti d arteries demonstrate normal calibers and courses. Posterior circulation: The origins of the vertebral arteries both appear widely patent. The more patrick perior extracranial portions of both vertebral arteries also demonstrate normal courses and calibers. They join to form a normal appearing basilar artery. Soft tissues: Visualized neck soft tissues demonstrate no suspicious abnormalities. Bones: No suspicious bony lesions. Visualized cervical spine appears normally aligned. IMPRESSION: Filling defect within the distal right MCA territory, resulting in ischemia of the right frontal lobe . No significant abnormality is seen within the arteries of the neck. Above discussed with Chacho Parr DNP at the time of dictation. The estimate of stenosis included in the report of the imaging study was calculated using the NASCET method Reviewed by: Geovani Monte MD on 12/14/2023 8:23 PM PST Approved by: Geovani Monte MD on 12/14/2023 8:23 PM PST Station ID: [id number]
[2023-12-14] MEDS ORDERED: ASPIRIN 300 MG SUPP PR STA (21:14)
--- NOTE | 2023-12-14 21:28 | XRAY Report ---
PROCEDURE: Chest 2V INDICATIONS: aspiration concerns TECHNIQUE: 2 views of the chest were acquired. COMPARISON: None. FINDINGS: Surgical changes and devices: Right chest wall generator with cardiac leads. Lungs and pleura: No pleural effusions or pneumothorax. Lungs are clear. Mediastinum: Mediastinal contours appear normal. Heart size is normal. Bones and chest wall: No suspicious bony lesions. Overlying soft tissues appear unremarkable. IMPRESSION: No acute cardiopulmonary process. Reviewed by: Geovani Monte MD on 12/14/2023 9:27 PM [facility] Approved by: Geovani Monte MD on 12/14/2023 9:27 PM [facility] Station ID: [id number]
[2023-12-14] MEDS ORDERED: SODIUM CHLORIDE 0.9% 1,000 ML IV ONE (22:47)
--- NOTE | 2023-12-14 23:04 | ED Physician Documentation ---
ED Addendum - Addendum Addendum: 12/14/23 23:03 No changes during my shift. Signed out to Dr. Yang awaiting transfer.
[2023-12-15] MEDS ORDERED: ACETAMINOPHEN 650 MG SUPP PR STA (02:19)
[2023-12-15] MEDS ORDERED: SODIUM CHLORIDE 0.9% 1,000 ML IV STA (02:26)
[2023-12-15 03:56] VITALS: BP 146/62; O2SAT 99
--- NOTE | 2023-12-15 04:06 | ED Physician Documentation ---
ED Addendum - Addendum Addendum: 12/15/23 0400 Patient picked up by [facility] for transfer to [facility]. Departure - Departure Disposition: 02 Transfer Acute Care Hosp Clinical Impression: Cerebrovascular accident (CVA) Qualifiers: CVA mechanism: unspecified Qualified Code(s): I63.9 - Cerebral infarction, unspecified Condition: Stable Forms: PCP List
== END 2023-12-15 04:00 | disposition short-term general hospital (02) ==
LOC: EDUNIT# → ED 17:45
DX: I63.9 Cerebral infarction, unspecified (principal); Z91.148 Patient's other noncompliance with medication regimen for other reason; I10 Essential (primary) hypertension; I48.91 Unspecified atrial fibrillation
CPT/HCPCS: 36415; 70450; 70496; 70498; 71045; 71046; 80053; 83690; 84484; 85025; 93005; 96374; 99285; A9270; Q9967

== ENCOUNTER 2025-02-21 20:33 | Inpatient (IN) ==
[2025-02-21 21:05] LABS: BASOPHILS # (AUTO) 0.1 10^3/uL (0.0-0.1); BASOPHILS % (AUTO) 0.3 %; EOSINOPHILS # (AUTO) 0.5 10^3/uL (0.0-0.7); EOSINOPHILS % (AUTO) 2.6 %; HCT - HEMATOCRIT 40.7 % (42.0-52.0); HGB - HEMOGLOBIN 12.7 g/dL (14.0-18.0); LYMPHOCYTES # (AUTO) 0.4 10^3/uL (1.5-3.5); MEAN CORPUSCULAR HEMOGLOBIN 31.4 pg (27.0-31.0); MEAN CORPUSCULAR HGB CONC 31.2 g/dL (32.0-36.0); MEAN CORPUSCULAR VOLUME 100.5 fL (80.0-94.0); MEAN PLATELET VOLUME 9.8 fL (7.4-11.4); MONOCYTES # (AUTO) 0.7 10^3/uL (0.0-1.0); MONOCYTES % (AUTO) 3.7 %; NEUTROPHILS # (AUTO) 15.8 10^3/uL (1.5-6.6); NEUTROPHILS % (AUTO) 90.8 %; PLT - PLATELET COUNT 211 10^3/uL (130-450); RED BLOOD COUNT 4.05 10^6/uL (4.70-6.10); RED CELL DISTRIBUTION WIDTH 15.2 % (12.0-15.0); WHITE BLOOD COUNT 17.5 x10^3/uL (4.8-10.8)
[2025-02-21 21:23] LABS: ALBUMIN 3.7 g/dL (3.2-5.5); ALBUMIN/GLOBULIN RATIO 1.1 (1.0-2.2); ALKALINE PHOSPHATASE 122 IU/L (42-121); ALT ALANINE AMINOTRANSFERASE 21 IU/L (10-60); AST ASPARTATE AMINOTRANSFERASE 16 IU/L (10-42); BILIRUBIN,TOTAL 0.7 mg/dL (0.2-1.0); BUN - BLOOD UREA NITROGEN 26 mg/dL (6-20); CALCIUM 9.5 mg/dL (8.5-10.3); CARBON DIOXIDE - CO2 25 mmol/L (21-32); CHLORIDE 102 mmol/L (101-111); CREATININE 1.3 mg/dL (0.6-1.3); GFR - MDRD 53 (>89); GLUCOSE 192 mg/dL (74-104); POTASSIUM 4.2 mmol/L (3.5-4.5); SODIUM 136 mmol/L (135-145)
[2025-02-21] MEDS: SODIUM CHLORIDE 0.9% 1,000 ML IV STA (21:32)
[2025-02-21 21:43] LABS: LIPASE < 10 U/L (11-82)
--- NOTE | 2025-02-21 22:20 | ED Physician Documentation ---
History of Present Illness Stated complaint Stated Complaint: CONFUSION,WEAKNESS Chief complaint Chief Complaint: Neuro History obtained from History obtained from: Patient Additonal information Additional information: 84yM with pmh cva 1 year prior with residual unilateral weakness p/w multiple medical issues per including a coughing spell tonight, followed by vomiting episode, along with chills and abdominal pain that is diffuse. states he also ahs been weak, confused, had trouble holding a cup today, and have been constipated X 1 week. 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 states also that he has been losing weight over the past year. they do not have a pcp. she is concerned that they are living in a trailer and would like to speak with a healthcare social worker. When patient is asked about his concerns, he states he wants to go home. Meds/Allgy Home Medications Ambulatory Orders Medication Instructions Recorded Confirmed aspirin 81 mg capsule 81 mg PO QPM 02/22/25 02/22/25 atorvastatin 40 mg tablet 40 mg PO QPM 02/22/25 02/22/25 bisoprolol fumarate 5 mg tablet 5 mg PO QPM 02/22/25 02/22/25 cefpodoxime 200 mg tablet 200 mg PO BID #20 tabs 02/22/25 famotidine 20 mg tablet 20 mg PO BID 02/22/25 02/22/25 omeprazole 20 mg capsule,delayed 20 mg PO DAILY 02/22/25 02/22/25 release terbinafine HCl 250 mg tablet 250 mg PO QPM 02/22/25 02/22/25 trazodone 50 mg tablet 100 mg PO QPM 02/22/25 02/22/25 Allergies Allergies Allergy/AdvReac Type Severity Reaction Status Date / Time No Known Drug Allergies Allergy Verified 12/14/23 17:47 [facility] Active Problems All Active Problems (Updated 02/22/25 @ 03:44 by Aura Lara MD) Gallbladder hydrops (Acute) Confusion (Acute) Acute UTI (Acute) Nausea & vomiting (Acute) Cough (Acute) Abdominal pain (Acute) Constipation (Acute) Weakness (Acute) Social History Social History Smoking Status: Never smoker Do you vape?: No Relationship: Do you feel safe in your home environment?: Yes Suffered physical, verbal, emotional, or financial abuse?: No History of Abuse: No POLST Patient has POLST: No Exam Exam Vital Signs: Vital Signs x48h Temp Pulse Resp BP Pulse Ox 02/22/25 04:20 37.0 C 02/22/25 03:18 78 20 132/56 H 94 02/22/25 03:17 36.7 C 02/22/25 02:38 67 16 116/50 L 94 02/22/25 01:08 88 16 159/56 H 94 02/22/25 00:08 72 16 129/53 L 95 02/21/25 22:25 75 20 142/56 H 95 02/21/25 20:53 37 C 76 20 131/64 H 92 Constitutional normal general appearance, no apparent distress and average body habitus elderlay gentleman sitting in bed in [facility] normocephalic and head/scalp atraumatic Eyes PERRL and EOMs intact bilaterally Neck/C-Spine visual inspection normal Chest inspection of chest normal Respiratory breath sounds equal bilaterally, normal respiratory effort and clear to auscultation bilaterally Cardiovascular normal heart rate noted and regular rhythm noted Gastrointestinal abdomen normal to inspection, abdomen soft to palpation and nontender to palpation Genitourinary no CVA tenderness and bladder normal to palpation Back/Pelvis spine normal to inspection Extremities normal to inspection Neurology [place] tender II-XII intact, speech normal and coordination normal diminished strength RUE/RLE. otherwise normal neurological exam Results Vitals Vitals: Vital Signs - 24 hr 02/21/25 20:53 02/21/25 22:25 02/22/25 00:08 Temperature 37 C Temperature Source Temporal Artery Scan Pulse Rate 76 75 72 Respiratory Rate 20 20 16 Blood Pressure 131/64 H 142/56 H 129/53 L O2 Saturation 92 95 95 O2 Source Room air Room air Room air Pain Intensity 5 7 02/22/25 01:08 02/22/25 02:38 02/22/25 03:17 Temperature 36.7 C Temperature Source Temporal Artery Scan Pulse Rate 88 67 Respiratory Rate 16 16 Blood Pressure 159/56 H 116/50 L O2 Saturation 94 94 O2 Source Room air Room air Pain Intensity 02/22/25 03:18 02/22/25 04:20 Temperature 37.0 C Temperature Source Oral Pulse Rate 78 Respiratory Rate 20 Blood Pressure 132/56 H O2 Saturation 94 O2 Source Room air Pain Intensity Oxygen O2 Source Room air EKG (time done) 2217: EKG releavant findings:: EKG personally interpreted by author of this note. Relevant findings are: Rate: Rate (enter#) (70) Rhythm: Atrial fibrillation QRS: RBBB Ischemia: No ST elevation c/w ischemia Labs Labs: Laboratory Tests 02/21/25 02/21/25 21:02 23:10 WBC 17.5 H RBC 4.05 L Hgb 12.7 L Hct 40.7 L MCV 100.5 H MCH 31.4 H MCHC 31.2 L RDW 15.2 H Plt Count 211 MPV 9.8 Neut # (Auto) 15.8 H Lymph # (Auto) 0.4 L [place] # (Auto) 0.7 Eos # (Auto) 0.5 Baso # (Auto) 0.1 Absolute Nucleated RBC 0.00 Nucleated RBC % 0.0 Sodium 136 Potassium 4.2 Chloride 102 Carbon Dioxide 25 Anion Gap 9.0 BUN 26 H Creatinine 1.3 Estimated GFR (MDRD) 53 L Glucose 192 H Calcium 9.5 Total Bilirubin 0.7 AST 16 ALT 21 Alkaline Phosphatase 122 H Total Protein 7.0 Albumin 3.7 Globulin 3.3 Albumin/Globulin Ratio 1.1 Lipase < 10 L Urine Color YELLOW Urine Clarity CLOUDY Urine pH 6.0 Ur Specific [place] 1.015 Urine Protein 30 H Urine Glucose (UA) NEGATIVE Urine Ketones TRACE Urine Occult Blood LARGE H Urine Nitrite POSITIVE H Urine Bilirubin NEGATIVE Urine Urobilinogen 0.2 (NORMAL) Ur Leukocyte Esterase LARGE H Urine RBC 11-25 H Urine WBC >25 H Ur Squamous Epith Cells FEW Squamous Urine Bacteria Many H Ur Microscopic Review INDICATED Urine Culture Comments INDICATED Procedures General procedure General procedure: Rectal disimpaction performed without issue. EBL 0 PD Medical Decision Making ED course ED course: 84yM presents with multiple medical concerns from , including request to see healthcare social worker. unfortunately we do not have social work at night. Labwork looks pretty benign and exam is benign. ct head negative for acute pathology. CT a/p concerning for gallbladder hydrops with cbd obstruction. also with BL hydroureteronephrosis, renal scarring and atrophy, and with fecal impaction. I did rectally disimpact him. plan to consider surgery and/or urology consult given ct a/p findings. d/w Dr Basilio who states the left moderate hydroureteronephosis on previous study from ct april 2023 has worsened and now is accompanied by right hydro. states patient had bladder surgery and instrumentation in the past. Plan to admit given UTI, confusion and CT findings. d/w Dr Robison who approves of hospitalist admission. Discharge Plan Discharge Patient Disposition: 66 [facility] DC/Xfer Condition: Stable Clinical Impression: Weakness, Constipation, Abdominal pain, Cough, Nausea & vomiting, Acute UTI, Confusion, Gallbladder hydrops Prescriptions: New cefpodoxime 200 mg tablet 200 mg PO BID Qty: 20 0RF Rx Instructions: must administer with a meal/food No Action atorvastatin 40 mg tablet 40 mg PO QPM bisoprolol fumarate 5 mg tablet 5 mg PO QPM famotidine 20 mg tablet 20 mg PO BID omeprazole 20 mg capsule,delayed release(DR/EC) 20 mg PO DAILY terbinafine HCl 250 mg tablet 250 mg PO QPM trazodone 50 mg tablet 100 mg PO QPM aspirin 81 mg capsule 81 mg PO QPM Activity Restrictions/Additional Instructions: You were seen in the emergency department for medical evaluation. You have a UTI. Please follow-up with your primary care provider and return to the emergency department if you have any new or worsening symptoms or other concerns. Print Language: Sami
[2025-02-21 23:16] LABS: BILIRUBIN,URINE NEGATIVE (NEGATIVE); GLUCOSE, URINE (UA) NEGATIVE (NEGATIVE); KETONES,URINE (UA) TRACE mg/dL (NEGATIVE); LEUKOCYTE ESTERASE, URINE LARGE (NEGATIVE); NITRITE,URINE POSITIVE (NEGATIVE); OCCULT BLOOD,URINE LARGE (NEGATIVE); PROTEIN,URINE 30 mg/dL (NEGATIVE); UROBILINOGEN,URINE 0.2 (NORMAL) E.U./dL (NORMAL)
[2025-02-21 23:23] LABS: CLARITY,URINE CLOUDY (CLEAR)
[2025-02-21 23:26] LABS: BACTERIA,URINE Many /HPF (None Seen); SQUAMOUS EPITHELIAL CELL,UR FEW Squamous (<= Few); WBC,URINE >25 /HPF (0-3)
[2025-02-22] MEDS: MAGNESIUM CITRATE 296 ML BOTTLE PO STA (00:50)
[2025-02-22] MEDS ORDERED: iohexoL-300 100 ML VIAL ONE (01:28)
[2025-02-22] MEDS: iohexoL-300 100 ML VIAL IVP ONE (02:28)
[2025-02-22] MEDS ORDERED: cefTRIAXone 1 GM VIAL ONE (03:06)
[2025-02-22] MEDS: cefTRIAXone 1 GM in SODIUM CHLORIDE 0.9% MINIBAG 100 ML IV STA (03:14)
[2025-02-22] MEDS ORDERED: SODIUM CHLORIDE FLUSH 0.9% 10 ML SYRINGE IVP PRN (04:51)
[2025-02-22] MEDS ORDERED: ZOLPIDEM 5 MG TABLET PO PRN (04:51)
[2025-02-22] MEDS ORDERED: ONDANSETRON 4 MG/2 ML VIAL IVP PRN (04:51)
--- OUTSIDE RECORDS SUMMARY | 2025-02-22 05:09 | EXTERNAL MEDICAL SUMMARY RPT | Continuity of Care Document ---
Author Organization [facility] Address [address] [place] [id number] Phone Problems date description facility 2025-02-22 02:56 Urinary tract infection, site n ot specified [facility] 2025-02-22 03:25 Urinary tract infection, site n ot specified [facility] 2025-02-22 03:44 Urinary tract infection, site n ot specified [facility] 2025-02-22 04:16 Urinary tract infection, site n ot specified [facility] Results/Labs test date facility value unit notes Result panel 1 LIPASE 2025-02-21 21:02 [facility] < 10 u/l As of May 2023 testing method has changed, this may include reference ranges. NUCLEATED RED BLOOD CELLS AUTO 2025-02-21 21:02 [facility] 0.0 /100wbc (missing) NRBC ABSOLUTE COUNT (AUTO) 2025-02-21 21:02 [facility] 0.00 x10 3/ul (missing) BASOPHILS # (AUTO) 2025-02-21 21:02 [facility] 0.1 10 3/ul (missing) LYMPHOCYTES # (AUTO) 2025-02-21 21:02 [facility] 0.4 10 3/ul (missing) EOSINOPHILS # (AUTO) 2025-02-21 21:02 [facility] 0.5 10 3/ul (missing) MONOCYTES # (AUTO) 2025-02-21 21:02 [facility] 0.7 10 3/ul (missing) BILIRUBIN,TOTAL 2025-02-21 21:02 [facility] 0.7 mg /dl As of May 2023 testing method has changed, this may include reference ranges. ALBUMIN/GLOBULIN RATIO 2025-02-21 21:02 [facility] 1.1 (missing) (missing) CREATININE 2025-02-21 21:02 [facility] 1.3 mg/dl As of May 2023 testing method has changed, this may include reference ranges. MEAN CORPUSCULAR VOLUME 2025-02-21 21: [facility] 100. 5 fl (missing) CHLORIDE 2025-02-21: [facility] 102 mmol/l As of May 2023 testing method has changed, this may include reference ranges. HGB - HEMOGLOBIN 2025-02-21 21: [facility] 12.7 g /dl (missing) ALKALINE PHOSPHATASE 2025-02-21: [facility] 122 iu/l As of May 2023 testing method has changed, this may include reference ranges. SODIUM 2025-02-21 21: [facility] 136 mmol/l As of May 2023 testing method has changed, this may include reference ranges. RED CELL DISTRIBUTION WIDTH 2025-02-21 21: [facility] 15.2 % (missing) NEUTROPHILS # (AUTO) 2025-02-21: [facility] 15.8 10 3/ul (missing) AST ASPARTATE AMINOTRANSFERASE 2025-02-21: [facility] 16 iu/l As of May 2023 testing method has changed, this may include reference ranges. WHITE BLOOD COUNT 2025-02-21: [facility] 17.5 x10 3/ul (missing) GLUCOSE 2025-02-21: [facility] 192 mg/dl As of May 2023 testing method has changed, this may include reference ranges. ALT ALANINE AMINOTRANSFERASE 2025-02-21: [facility] 21 iu/l As of May 2023 testing method has changed, this may include reference ranges. PLT - PLATELET COUNT 2025-02-21 21: [facility] 211 10 3/ul (missing) CARBON DIOXIDE - CO2 2025-02-21: [facility] 25 mmol/l As of May 2023 testing method has changed, this may include reference ranges. BUN - BLOOD UREA NITROGEN 2025-02-21 21: [facility] 26 mg/dl As of May testing method has changed, this may include reference ranges. GLOBULIN 2025-02-21: [facility] 3.3 g/dl (missing) ALBUMIN 2025-02-21 21:02 [facility] 3.7 g/dl As of May 2023 testing method has changed, this may include reference ranges. MEAN CORPUSCULAR HGB CONC 2025-02-21 21: [facility] 31.2 g/dl (missing) MEAN CORPUSCULAR HEMOGLOBIN 2025-02-21 21: [facility] 31.4 pg (missing) RED BLOOD COUNT 2025-02-21 21: [facility] 4.05 10 6/ul (missing) POTASSIUM 2025-02-21: [facility] 4.2 mmol/l As of May 2023 testing method has changed, this may include reference ranges. HCT - HEMATOCRIT 2025-02-21: [facility] 40.7 % (missing) GFR - MDRD 2025-02-21: [facility] 53 (bhargav don) Social History date description facility
--- NOTE | 2025-02-22 05:14 | HISTORY & PHYSICAL EXAMINATION ---
Chief Complaint Chief Complaint Chief Complaint: AMS History of Present Illness History of Present Illness HPI Comment/Other: 84 y old male with PMH HTN, hyperlipidemia, CVA, h/l bladder surgery brought in to the ER due to AMS for few days. On presentation, pt was afebrile. Labs showed leukocytosis and UTI CT head WO contrast showed no acute findings CT abdomen/pelvis showed B/L [place]-ureteronephrosis As per ER physician( Dr Lara), she consulted with Urologist ( Dr Robison) who recommended admission to treat UTI In ER , pt was given IVF and ceftriaxone Pt is admitted due to acute encephalopathy and UTI Review of Systems Status of ROS: unobtainable due to medical condition PFSH Active Problems All Active Problems (Updated 02/22/25 @ 03:44 by Aura Lara MD) Gallbladder hydrops (Acute) Confusion (Acute) Acute UTI (Acute) Nausea & vomiting (Acute) Cough (Acute) Abdominal pain (Acute) Constipation (Acute) Weakness (Acute) Social History Social History Smoking Status: Never smoker Do you vape?: No Relationship: Do you feel safe in your home environment?: Yes Suffered physical, verbal, emotional, or financial abuse?: No History of Abuse: No POLST Patient has POLST: No Meds/Allgy Home Medications Ambulatory Orders Medication Instructions Recorded Confirmed aspirin 81 mg capsule 81 mg PO QPM 02/22/25 02/22/25 atorvastatin 40 mg tablet 40 mg PO QPM 02/22/25 02/22/25 bisoprolol fumarate 5 mg tablet 5 mg PO QPM 02/22/25 02/22/25 cefpodoxime 200 mg tablet 200 mg PO BID #20 tabs 02/22/25 famotidine 20 mg tablet 20 mg PO BID 02/22/25 02/22/25 omeprazole 20 mg capsule,delayed 20 mg PO DAILY 02/22/25 02/22/25 release terbinafine HCl 250 mg tablet 250 mg PO QPM 02/22/25 02/22/25 trazodone 50 mg tablet 100 mg PO QPM 02/22/25 02/22/25 Allergies Allergies Allergy/AdvReac Type Severity Reaction Status Date / Time No Known Drug Allergies Allergy Verified 12/14/23 17:47 Exam Exam Vital Signs: Vital Signs x48h Temp Pulse Resp BP Pulse Ox 02/22/25 04:20 37.0 C 02/22/25 03:18 78 20 132/56 H 94 02/22/25 03:17 36.7 C 02/22/25 02:38 67 16 116/50 L 94 02/22/25 01:08 88 16 159/56 H 94 02/22/25 00:08 72 16 129/53 L 95 02/21/25 22:25 75 20 142/56 H 95 Constitutional normal general appearance and no apparent distress HENMT normocephalic Eyes PERRL Chest inspection of chest normal Respiratory breath sounds equal bilaterally Cardiovascular normal heart rate noted Gastrointestinal abdomen normal to inspection Extremities normal to inspection Psychiatry Pt is confused Skin no rash Conclusion/Plan Problem List (1) Acute UTI: Plan: A: UTI Acute encephalopathy Leukocytosis HTN Hyperlipidemia H/O stroke H/O bladder surgery B/L [place]-ureteronephrosis Plan: Admit to med surg Follow cultures Start NS @ 100 cc/h Start ceftriaxone NPO Swallow eval Monitor mental status Neuro checks Cont aspirin and lipitor As per ER physician( Dr Lara), she consulted with Urologist ( Dr Robison) who recommended admission to treat UTI DVT prophylaxic: SCD Full code Pt is admitted as inpatient as more than 2 midnight stay is expected Lab Results 02/21/25 21:02 02/21/25 21:02
[2025-02-22] MEDS: SODIUM CHLORIDE 0.9% 1,000 ML IV SCH (07:16)
--- NOTE | 2025-02-22 08:56 | PROVIDER PROGRESS NOTE ---
Hospitalist Cross-cover Note Cross-Cover Note Cross-Cover Note: Patient admitted in the lug loader hours for abdominal pain. Vesta to have a UTI that is most likely low-grade pyelonephritis in the face of bilateral hydronephrosis left greater than right. He has an incredibly complicated past medical history. I dispensed an hour and a half reviewing the chart. I had to get old records from [facility] and [facility]. Past medical history is as below. Which to include this in the electronic medical record for completeness sake and for urology/anesthesia to review on this gentleman. In the meantime we will continue to treat with antibiotics. Urology may be able to see this patient on February 24. 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 Referred to Cardiology Opioid use disorder treated in [place] for diarrhea with opioids 2002. In remission Chronic systolic (congestive) heart failure LVEF 25-30% . Echo 04/21/2019 mild dilated LV, severely depressed LVEF 25-30%, mild MR, mod AR, Mild TR, dilation of aorta to 4.4 cm. Repeat echo w CVA 12/2023 and EF 53%, no PFO. History of pacemaker Placed ~ 2019 in [place] and another intervention in [place]. Suspected R atrial lead not in place 06/2023 . Generator replaced 07/18/2023 Uriel [facility]yan @ [facility]. Colovesical fistula complication of neobladder surgery done in [place] ~2002, tx medical in [place] for 6 months C. difficile colitis after abx for UTI 04/[address] finding on CT abd Anxiety and depression with insomnia, has hx of overuse of benzo and when he runs out, he gets withdrawal. Family counselled to lock meds away and they need to be the ones giving him his meds 01/2023. Hyperlipidemia Hypertension Atrial fibrillation off and on DOAC at his leisure Cerebrovascular accident (CVA) L temporal PLAN[employer] 06/2020 and no tx since it was during Covid so he stayed home. Personality changed and issues w word finding. Again stopped DOAC for a year then woke 12/13/23 w ss of CVA. Came to ER 12/14/23. Transferred to [facility]. Dysarthria and dysphagia. Improved w dc minced/moist diet w thin liquids. Forget and confused. Decision not to do DOAC bc of neobladder and hematuria w risk of bleed. On statin and ASA. 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 Planned cystoscopy 06/2023 for removal of retained surgical clips, possible fulguration but surgery cancelled by anesthesia for hx of noncompliance w meds, pacer at end of life, and EF 25% with no CHF meds.
[2025-02-22] MEDS ORDERED: ASPIRIN 325 MG TABLET PO SCH (09:00)
[2025-02-22] MEDS: ACETAMINOPHEN 325 MG TABLET PO PRN (09:10)
[2025-02-22] MEDS: ATORVASTATIN 40 MG TABLET PO SCH (10:25)
[2025-02-22] MEDS: ASPIRIN CHEW 81 MG TABLET PO SCH (10:25)
[2025-02-22] MEDS: SODIUM CHLORIDE FLUSH 0.9% 10 ML SYRINGE IVP SCH (10:25)
[2025-02-22] MEDS: ZINC OXIDE 20% OINT 60 GM TUBE TP SCH (11:48)
--- NOTE | 2025-02-22 15:06 | PHARMACY PROGRESS NOTE ---
Best Possible Medication History Admit Date and Time: 02/22/25 220959 Home Medications Medication Instructions Recorded Confirmed Type aspirin 81 mg capsule 81 mg PO QPM 02/22/25 02/22/25 History atorvastatin 40 mg tablet 40 mg PO QPM 02/22/25 02/22/25 History bisoprolol fumarate 5 mg tablet 5 mg PO QPM 02/22/25 02/22/25 History cefpodoxime 200 mg tablet 200 mg PO BID #20 tabs 02/22/25 Rx famotidine 20 mg tablet 20 mg PO BID 02/22/25 02/22/25 History omeprazole 20 mg capsule,delayed 20 mg PO DAILY 02/22/25 02/22/25 History release terbinafine HCl 250 mg tablet 250 mg PO QPM 02/22/25 02/22/25 History trazodone 50 mg tablet 100 mg PO QPM 02/22/25 02/22/25 History Medications reviewed in ED?: Yes Medication History completed: Yes Patient Interview: Completed Secondary Source(s): Prescription bottles and Spouse/Significant other [facility] Statement: As the person ultimately responsible for medication therapy, providers are able to order a medication from an existing home medication list in [facility] via the "Reconcile Routine" prior to Confirmation of that medication by customer support engineer. Such practice is discouraged except when the physician, in their clinical judgment, deems that a medical need exists for a medication without regard to previous use.
--- NOTE | 2025-02-22 15:44 | CONSULTATION NOTE ---
Referring Provider Name of Referring Provider:: Dr Enriquez Consult Date: 02/22/25 Chief Complaint Chief Complaint Chief Complaint: AMS History of Present Illness Admitted From Admitted From:: ER History Obtained From Records Reviewed: ER History obtained from: Exam Limitations: patient poorly responsive History of Present Illness HPI Comment/Other: Giancarlo is an 84-year-old male with a complex urological history. His history is mostly obtained via his . He has a history of radical cystectomy performed 20 years ago and had a orthotopic neobladder. He did catheterize himself for urination for many years however he stopped several years ago for unclear reasons. He has had declining mental status over the last several years. He has had multiple issues including multiple strokes. Reportedly he has had a pyelonephritis episode in the past. Also had a colovesical fistula which was fixed about 7 years ago. His states that at baseline he is not very active and spends most of his day sitting in the chair. he does speak to her but does not perform most of his activities of daily living. Yesterday he had a coughing fit and then reportedly had a significant decrease in his mental status afterwards. He presented to the hospital and was found to have leukocytosis, concern for UTI on urinalysis. And a CT scan which showed a distended neobladder with worsening bilateral hydroureteronephrosis. His renal function is normal. On exam today at bedside he has agonal breathing and is arousable to touch His states that she has not seen him have a bowel movement in a week. 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 Referred to Cardiology Opioid use disorder treated in [place] for diarrhea with opioids 2002. In remission Chronic systolic (congestive) heart failure LVEF 25-30% . Echo 04/21/2019 mild dilated LV, severely depressed LVEF 25-30%, mild MR, mod AR, Mild TR, dilation of aorta to 4.4 cm. Repeat echo w CVA 12/2023 and EF 53%, no PFO. History of pacemaker Placed ~ 2019 in [place] and another intervention in [place]. Suspected R atrial lead not in place 06/2023 . Generator replaced 07/18/2023 Uriel ryan @ [facility]. Colovesical fistula complication of neobladder surgery done in [place] ~2002, tx medical in [place] for 6 months C. difficile colitis after abx for UTI 04/2023 Diverticulosis incidental finding on CT abd Anxiety and depression with insomnia, has hx of overuse of benzo and when he runs out, he gets withdrawal. Family counselled to lock meds away and they need to be the ones giving him his meds 01/2023. 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 Personality changed and issues w word finding. Again stopped DOAC for a year then woke 12/13/23 w ss of CVA. Came to ER 12/14/23. Transferred to [facility]. Dysarthria and dysphagia. Improved w dc minced/moist diet w thin liquids. Forget and confused. Decision not to do DOAC bc of neobladder and hematuria w risk of bleed. On statin and ASA. 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 Planned cystoscopy 06/2023 for removal of retained surgical clips, possible fulguration but surgery cancelled by anesthesia for hx of noncompliance w meds, pacer at end of life, and EF 25% with no CHF meds. Social History Social History Smoking Status: Former smoker Do you dip or chew tobacco?: No Do you vape?: No Relationship: Spouse Level: Dependent Do you feel safe in your home environment?: No (per spouse) Suffered physical, verbal, emotional, or financial abuse?: No History of Abuse: No POLST Patient has POLST: No Meds/Allgy Home Medications Ambulatory Orders Medication Instructions Recorded Confirmed aspirin 81 mg capsule 81 mg PO QPM 02/22/25 02/22/25 atorvastatin 40 mg tablet 40 mg PO QPM 02/22/25 02/22/25 bisoprolol fumarate 5 mg tablet 5 mg PO QPM 02/22/25 02/22/25 cefpodoxime 200 mg tablet 200 mg PO BID #20 tabs 02/22/25 famotidine 20 mg tablet 20 mg PO BID 02/22/25 02/22/25 omeprazole 20 mg capsule,delayed 20 mg PO DAILY 02/22/25 02/22/25 release terbinafine HCl 250 mg tablet 250 mg PO QPM 02/22/25 02/22/25 trazodone 50 mg tablet 100 mg PO QPM 02/22/25 02/22/25 Allergies Allergies Allergy/AdvReac Type Severity Reaction Status Date / Time No Known Drug Allergies Allergy Verified 12/14/23 17:47 Results Lab Results Lab results reviewed: Yes 02/21/25 21:02 02/21/25 21:02 Other Lab Results: Lab Results x24hrs 02/21/25 02/21/25 Range/Units 23:10 21:02 WBC 17.5 H (4.8-10.8) x10^3/uL RBC 4.05 L (4.70-6.10) 10^6/uL Hgb 12.7 L (14.0-18.0) g/dL Hct 40.7 L (42.0-52.0) % MCV 100.5 H (80.0-94.0) fL MCH 31.4 H (27.0-31.0) pg MCHC 31.2 L (32.0-36.0) g/dL RDW 15.2 H (12.0-15.0) % Plt Count 211 (130-450) 10^3/uL MPV 9.8 (7.4-11.4) fL Neut # (Auto) 15.8 H (1.5-6.6) 10^3/uL Lymph # (Auto) 0.4 L (1.5-3.5) 10^3/uL [place] # (Auto) 0.7 (0.0-1.0) 10^3/uL Eos # (Auto) 0.5 (0.0-0.7) 10^3/uL Baso # (Auto) 0.1 (0.0-0.1) 10^3/uL Absolute Nucleated RBC 0.00 x10^3/uL Nucleated RBC % 0.0 /100WBC Sodium 136 (135-145) mmol/L Potassium 4.2 (3.5-4.5) mmol/L Chloride 102 (101-111) mmol/L Carbon Dioxide 25 (21-32) mmol/L Anion Gap 9.0 (6-13) BUN 26 H (6-20) mg/dL Creatinine 1.3 (0.6-1.3) mg/dL Estimated GFR (MDRD) 53 L (>89) Glucose 192 H (74-104) mg/dL Calcium 9.5 (8.5-10.3) mg/dL Total Bilirubin 0.7 (0.2-1.0) mg/dL AST 16 (10-42) IU/L ALT 21 (10-60) IU/L Alkaline Phosphatase 122 H (42-121) IU/L Total Protein 7.0 (6.4-8.9) g/dL Albumin 3.7 (3.2-5.5) g/dL Globulin 3.3 (2.1-4.2) g/dL Albumin/Globulin Ratio 1.1 (1.0-2.2) Lipase < 10 L (11-82) U/L Urine Color YELLOW Urine Clarity CLOUDY (CLEAR) Urine pH 6.0 (5.0-7.5) PH Ur Specific [place] 1.015 (1.002-1.030) Urine Protein 30 H (NEGATIVE) mg/dL Urine Glucose (UA) NEGATIVE (NEGATIVE) mg/dL Urine Ketones TRACE (NEGATIVE) mg/dL Urine Occult Blood LARGE H (NEGATIVE) Urine Nitrite POSITIVE H (NEGATIVE) Urine Bilirubin NEGATIVE (NEGATIVE) Urine Urobilinogen 0.2 (NORMAL) (NORMAL) E.U./dL Ur Leukocyte Esterase LARGE H (NEGATIVE) Urine RBC 11-25 H (0-5) /HPF Urine WBC >25 H (0-3) /HPF Ur Squamous Epith Cells FEW Squamous (<= Few) Urine Bacteria Many H (None Seen) /HPF Ur Microscopic Review INDICATED Urine Culture Comments INDICATED Exam Exam Vital Signs: Vital Signs x48h Temp Pulse Resp BP Pulse Ox O2 Flow Rate 02/22/25 15:30 36.7 C 91 18 115/51 L 96 02/22/25 11:30 36.8 C 84 20 117/43 L 93 02/22/25 07:58 36.6 C 94 20 116/49 L 94 0 NAD Lying in bed with agonal breathing abdomen soft, tender to palpation diffusely but worse suprapubically and RUQ Conclusion/Plan Problem List (1) Acute UTI: Plan: 84-year-old male with complex urological history including cystectomy and neobladder 20 years ago, colovesical fistula 7 years ago, now with worsening hydroureteronephrosis and enlarging bladder likely related to poor emptying in the setting of altered mental status and likely UTI with leukocytosis -No acute intervention. I recommend catheterization with a 16 Portuguese Lombardo catheter to drain his bladder. The hydroureteronephrosis is normal in the setting of a refluxing ureter. I recommend empiric antibiotics. Ceftriaxone is a reasonable start. We discussed that this UTI may not be the sole reason for his poor mental status. we will ultimately have to see how well he recovers The Lombardo catheter should remain in for now. It can stay in for up to a month. If he does regain his mental status he could resume a clean intermittent catheterization regimen also Call with questions Lab Results Lab results reviewed: Yes 02/21/25 21:02 02/21/25 21:02
[2025-02-22] MEDS: traZODone 50 MG TABLET PO SCH (20:47)
[2025-02-23] MEDS: METOPROLOL 5 MG/5 ML VIAL IVP SCH (00:20)
[2025-02-23 00:51] LABS: CALCIUM 9.6 mg/dL (8.5-10.3); CREATININE 1.2 mg/dL (0.6-1.3)
[2025-02-23 00:55] LABS: TROPONIN I HIGH SENSITIVITY 29.6 ng/L (2.3-19.7)
[2025-02-23] MEDS: FUROSEMIDE 40 MG/4 ML VIAL IVP SCH (01:46)
[2025-02-23] MEDS: MORPHINE 10 MG/ML VIAL IVP ONE (01:47)
[2025-02-23 07:52] LABS: BASOPHILS % (AUTO) 0.2 %; EOSINOPHILS % (AUTO) 2.5 %; HCT - HEMATOCRIT 35.2 % (42.0-52.0); HGB - HEMOGLOBIN 11.4 g/dL (14.0-18.0); LYMPHOCYTES % (AUTO) 2.2 %; MEAN CORPUSCULAR HEMOGLOBIN 31.8 pg (27.0-31.0); MEAN CORPUSCULAR HGB CONC 32.4 g/dL (32.0-36.0); MEAN CORPUSCULAR VOLUME 98.3 fL (80.0-94.0); MONOCYTES % (AUTO) 2.4 %; NEUTROPHILS % (AUTO) 91.8 %; PLT - PLATELET COUNT 174 10^3/uL (130-450); RED BLOOD COUNT 3.58 10^6/uL (4.70-6.10); RED CELL DISTRIBUTION WIDTH 15.8 % (12.0-15.0); WHITE BLOOD COUNT 12.5 x10^3/uL (4.8-10.8)
[2025-02-23 07:56] LABS: SLIDE REVIEW? Indicated
[2025-02-23 07:57] LABS: ABNORMAL LYMPHS % (MANUAL) 0 %
[2025-02-23 08:17] LABS: CALCIUM 9.1 mg/dL (8.5-10.3); CREATININE 1.2 mg/dL (0.6-1.3); POTASSIUM 3.9 mmol/L (3.5-4.5)
[2025-02-23 08:25] LABS: BAND NEUTROPHILS % (MANUAL) 19 %; LYMPHOCYTES # (MANUAL) 0.3 10^3/uL (1.5-3.5); LYMPHOCYTES % (MANUAL) 2 %; METAMYELOCYTES % (MANUAL) 2 %; MONOCYTES # (MANUAL) 0.1 10^3/uL (0.0-1.0); NEUTROPHILS # (MANUAL) 11.9 10^3/uL (1.5-6.6)
[2025-02-23 08:30] LABS: DIFFERENTIAL COMMENT MANUAL DIFFERENTIAL; PLATELET ESTIMATE, MANUAL NORMAL (130-450,000) (NORMAL); PLATELET MORPHOLOGY NORMAL APPEARANCE (NORMAL); WBC MORPHOLOGY (MULTIPLE) 1+ TOXIC GRANULATION (NORMAL)
[2025-02-23] MEDS: FAMOTIDINE 20 MG TABLET PO SCH (08:56)
[2025-02-23] MEDS: cefTRIAXone 1 GM in SODIUM CHLORIDE 0.9% MINIBAG 100 ML IV SCH (08:56)
[2025-02-23 11:08] LABS: BILIRUBIN,TOTAL 0.5 mg/dL (0.2-1.0); CALCIUM 9.1 mg/dL (8.5-10.3); CREATININE 1.2 mg/dL (0.6-1.3); POTASSIUM 3.8 mmol/L (3.5-4.5)
--- NOTE | 2025-02-23 15:18 | CONSULTATION NOTE ---
History of Present Illness History of Present Illness HPI Comment/Other: 84M admitted to hospitalist service with AMS and UTI, with a complex past medical and abdominal surgical history to include CAD with recent CVA, AFib on and off DOAC, bladder ca s/p radical cystoprostatectomy with neobladder as well as repair of colovesical fistula, with acute on chronic bilateral hydroureter. He is being treated with abx for UTI vs pyelonephritis, but also has concerning gallbladder findings on imaging. His indicates a chronic (1 year) complaint of abdominal pain. There is not much history otherwise provided. He is altered. 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 Referred to Cardiology Opioid use disorder treated in [place] for diarrhea with opioids 2002. In remission Chronic systolic (congestive) heart failure LVEF 25-30% . Echo 04/21/2019 mild dilated LV, severely depressed LVEF 25-30%, mild MR, mod AR, Mild TR, dilation of aorta to 4.4 cm. Repeat echo w CVA 12/2023 and EF 53%, no PFO. History of pacemaker Placed ~ 2019 in [place] and another intervention in [place]. Suspected R atrial lead not in place 06/2023 . Generator replaced 07/18/2023 Uriel ryan @ [facility]. Colovesical fistula complication of neobladder surgery done in [place] ~2002, tx medical in [place] for 6 months C. difficile colitis after abx for UTI 04/2023 Diverticulosis incidental finding on CT abd Anxiety and depression with insomnia, has hx of overuse of benzo and when he runs out, he gets withdrawal. Family counselled to lock meds away and they need to be the ones giving him his meds 01/2023. Hyperlipidemia Hypertension Atrial fibrillation off and on DOAC at his leisure Obstructive uropathy ~2002 radical cystoprostatectomy w urinary diversion and orthotopic neobladder for bladder ca>>LUQ/LLQ ache and seen in ER 04/2023 w b/l L>R hydro>>left AMA>>went to [facility] and tx was for pyelonephritis and had stones in GB and CBD. Planned cystoscopy 06/2023 for removal of retained surgical clips, possible fulguration but surgery cancelled by anesthesia for hx of noncompliance w meds, pacer at end of life, and EF 25% with no CHF meds. 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 Personality changed and issues w word finding. Again stopped DOAC for a year then woke 12/13/23 w ss of CVA. Came to ER 12/14/23. Transferred to [facility]. Dysarthria and dysphagia. Improved w dc minced/moist diet w thin liquids. Forget and confused. Decision not to do DOAC bc of neobladder and hematuria w risk of bleed. On statin and ASA. DC was to [facility] 12/26/23 Social History Social History Smoking Status: Former smoker Do you dip or chew tobacco?: No Do you vape?: No Relationship: Spouse Level: Dependent Do you feel safe in your home environment?: No (per spouse) Suffered physical, verbal, emotional, or financial abuse?: No History of Abuse: No POLST Patient has POLST: No Meds/Allgy Home Medications Ambulatory Orders Medication Instructions Recorded Confirmed aspirin 81 mg capsule 81 mg PO QPM 02/22/25 02/22/25 atorvastatin 40 mg tablet 40 mg PO QPM 02/22/25 02/22/25 bisoprolol fumarate 5 mg tablet 5 mg PO QPM 02/22/25 02/22/25 cefpodoxime 200 mg tablet 200 mg PO BID #20 tabs 02/22/25 famotidine 20 mg tablet 20 mg PO BID 02/22/25 02/22/25 omeprazole 20 mg capsule,delayed 20 mg PO DAILY 02/22/25 02/22/25 release terbinafine HCl 250 mg tablet 250 mg PO QPM 02/22/25 02/22/25 trazodone 50 mg tablet 100 mg PO QPM 02/22/25 02/22/25 Allergies Allergies Allergy/AdvReac Type Severity Reaction Status Date / Time No Known Drug Allergies Allergy Verified 12/14/23 17:47 Results Lab Results Lab results reviewed: Yes 02/23/25 07:44 02/23/25 10:44 Other Lab Results: Lab Results x24hrs 02/23/25 02/23/25 02/23/25 Range/Units 10:44 07:44 07:44 WBC 12.5 H (4.8-10.8) x10^3/uL RBC 3.58 L (4.70-6.10) 10^6/uL Hgb 11.4 L (14.0-18.0) g/dL Hct 35.2 L (42.0-52.0) % MCV 98.3 H (80.0-94.0) fL MCH 31.8 H (27.0-31.0) pg MCHC 32.4 (32.0-36.0) g/dL RDW 15.8 H (12.0-15.0) % Plt Count 174 (130-450) 10^3/uL MPV 10.0 (7.4-11.4) fL Neut # (Auto) Not Reportable Lymph # (Auto) Not Reportable Thayer # (Auto) Not Reportable Eos # (Auto) Not Reportable Baso # (Auto) Not Reportable Absolute Nucleated RBC Not Reportable Total Counted 100 Band Neuts % (Manual) 19 H (0 - 10) % Abnorm Lymph % (Manual) 0 % Metamyelocytes % 2 H ( - 0) % Nucleated RBC % Not Reportable Neutrophils # (Manual) 11.9 H (1.5-6.6) 10^3/uL Lymphocytes # (Manual) 0.3 L (1.5-3.5) 10^3/uL Monocytes # (Manual) 0.1 (0.0-1.0) 10^3/uL Eosinophils # (Manual) 0.0 (0-0.7) 10^3/uL Basophils # (Manual) 0.0 (0-0.1) 10^3/uL Differential Comment MANUAL DIFFERENTIAL Manual Slide Review Indicated WBC Morphology 1+ TOXIC GRANULATION (NORMAL) Platelet Estimate NORMAL (130-450,000) (NORMAL) Platelet Morphology NORMAL APPEARANCE (NORMAL) RBC Morph Micro Appear 1+ ANISOCYTOSIS 1+ POIKILOCYTOSIS (NORMAL) Sodium 142 142 (135-145) mmol/L Potassium 3.8 3.9 (3.5-4.5) mmol/L Chloride 109 109 (101-111) mmol/L Carbon Dioxide 27 27 (21-32) mmol/L Anion Gap 6.0 6.0 (6-13) BUN 29 H 31 H (6-20) mg/dL Creatinine 1.2 1.2 (0.6-1.3) mg/dL Estimated GFR (MDRD) 58 L 58 L (>89) Glucose 176 H 216 H (74-104) mg/dL Calcium 9.1 9.1 (8.5-10.3) mg/dL Total Bilirubin 0.5 (0.2-1.0) mg/dL AST 15 (10-42) IU/L ALT 22 (10-60) IU/L Alkaline Phosphatase 106 (42-121) IU/L Troponin I High Sens (2.3-19.7) ng/L B-Natriuretic Peptide (5-100) pg/mL Total Protein 6.0 L (6.4-8.9) g/dL Albumin 3.0 L (3.2-5.5) g/dL Globulin 3.0 (2.1-4.2) g/dL Albumin/Globulin Ratio 1.0 (1.0-2.2) 02/23/25 Range/Units 00:24 WBC (4.8-10.8) x10^3/uL RBC (4.70-6.10) 10^6/uL Hgb (14.0-18.0) g/dL Hct (42.0-52.0) % MCV (80.0-94.0) fL MCH (27.0-31.0) pg MCHC (32.0-36.0) g/dL RDW (12.0-15.0) % Plt Count (130-450) 10^3/uL MPV (7.4-11.4) fL Neut # (Auto) Lymph # (Auto) Thayer # (Auto) Eos # (Auto) Baso # (Auto) Absolute Nucleated RBC Total Counted Band Neuts % (Manual) (0 - 10) % Abnorm Lymph % (Manual) % Metamyelocytes % ( - 0) % Nucleated RBC % Neutrophils # (Manual) (1.5-6.6) 10^3/uL Lymphocytes # (Manual) (1.5-3.5) 10^3/uL Monocytes # (Manual) (0.0-1.0) 10^3/uL Eosinophils # (Manual) (0-0.7) 10^3/uL Basophils # (Manual) (0-0.1) 10^3/uL Differential Comment Manual Slide Review WBC Morphology (NORMAL) Platelet Estimate (NORMAL) Platelet Morphology (NORMAL) RBC Morph Micro Appear (NORMAL) Sodium 141 (135-145) mmol/L Potassium 4.0 (3.5-4.5) mmol/L Chloride 107 (101-111) mmol/L Carbon Dioxide 25 (21-32) mmol/L Anion Gap 9.0 (6-13) BUN 30 H (6-20) mg/dL Creatinine 1.2 (0.6-1.3) mg/dL Estimated GFR (MDRD) 58 L (>89) Glucose 144 H (74-104) mg/dL Calcium 9.6 (8.5-10.3) mg/dL Total Bilirubin (0.2-1.0) mg/dL AST (10-42) IU/L ALT (10-60) IU/L Alkaline Phosphatase (42-121) IU/L Troponin I High Sens 29.6 H* (2.3-19.7) ng/L B-Natriuretic Peptide 177 H (5-100) pg/mL Total Protein (6.4-8.9) g/dL Albumin (3.2-5.5) g/dL Globulin (2.1-4.2) g/dL Albumin/Globulin Ratio (1.0-2.2) Diagnostic Imaging Results Diagnostic Imaging Results: positive Prelim report reviewed and Read contemporaneously Diagnostic Imaging Results Comments: CT abd/pel - gallbladder hydrops with obstructing stone in the cystic duct Review of Systems Status of ROS: 10 or more systems reviewed and unremarkable except as noted in history and below Exam Exam Vital Signs: Vital Signs x48h Temp Pulse Resp BP Pulse Ox O2 Flow Rate 02/23/25 13:00 36.9 C 107 H 20 140/66 H 94 3 02/23/25 09:00 36.6 C 92 20 141/60 H 94 3 Constitutional abnormal general appearance (chronically ill), (lethargic) and (frail appearing) and limitations noted (altered mental status) Respiratory O2 mask in place Cardiovascular normal heart rate noted Gastrointestinal abdomen soft to palpation and nondistended generalized ttp with increased focal RUQ ttp. unable to assess murpheys sign given AMS Psychiatry mental status abnormal and orientation abnormal Skin skin color abnormal (pale) Conclusion/Plan Problem List (1) Acute UTI: (2) RUQ abdominal pain: Plan: 84yoM with probable acute cholecystitis, though he also is being treated for a UTI which may also account for his leukocytosis. He is HD normal with WBC downtrending (17 to 12) on IV ABx, and his bilirubin/transaminases are normal. However he has chronic abdominal pain with acute RUQ pain, and on CT imaging his gallbladder has the appearance of hydrops with a visible obstructing stone in the cystic duct. Given his medical history and current clinical condition, he is not a surgical candidate and recommendation is for percutaneous cholecystostomy tube for source control, plus/minus ERCP/PTC if additional biliary decompression is needed. The radiologist/interventional radiologist performing the percutaneous cholecystostomy tube may request a HIDA scan for definitive imaging first, however I think the diagnosis is quite clear between the physical exam and CT findings; the need for additional bile duct decompression can be determined based on the cholangiogram during percutaneous cholecystostomy tube placement or by MRCP there after. Samantha Sheridan DO, FACS General Surgeon, [facility] Lab Results Lab results reviewed: Yes 02/23/25 07:44 02/23/25 10:44 Diagnostic Imaging Results Diagnostic Imaging Results: positive Prelim report reviewed and Read contemporaneously
[2025-02-23] MEDS: METOPROLOL 5 MG/5 ML VIAL IVP STA ×2 (15:36→18:39)
[2025-02-23] MEDS: FUROSEMIDE 20 MG/2 ML VIAL IVP STA ×2 (15:36→18:40)
[2025-02-23] MEDS: diltiaZEM INJ 5 MG/ML VIAL IVP ONE (18:39)
--- NOTE | 2025-02-23 18:57 | Discharge Summary ---
"Discharge Summary Admit Date: 02/22/25 Discharge Date: 02/23/25 Discharging Provider: Beth Guerrier MD Primary Care Provider: no PCP Code Status: Attempt Resuscitation Discharge Facility Name: [facility] DIAGNOSES Discharge Diagnoses with Status of Each Condition: 1. Metabolic encephalopathy 2. UTI 3. Chronic bilateral hydronephrosis 4. Acute cholecystitis with hydrops and gallbladder wall thickening and common bile duct stones 5. Cognitive deficits due to stroke 6. History of radical cystoprostatectomy with urinary diversion and orthotopic neobladder for bladder cancer 2002 7. 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 Acute on Chronic systolic heart failure 9. Chronic atrial fibrillation, not able to be anticoagulated due to risk of fall and hematuria in orthotopic neobladder with rvr HPI History of Present Illness: This is an 84-year-old gentleman who has a tenuous home life in [facility]. He lives in a trailer with his . In 2002 he underwent a bladder resection for what was felt to be bladder cancer. He underwent a cystoprostatectomy with urinary diversion and orthotopic neobladder. This was in [facility]. This was in 2002. A few months later he developed a colovesicular fistula and was in [place] for 6 months. This gentleman has lived all over [facility] then [place] and most recently living [place] [facility] [place] He does not have a primary care provider because of mobility issues. He has chronic atrial fibrillation. And with one of his intermittent visits to the [facility] it was decided that he should not be on anticoagulation in spite of a history of a stroke because of bleeding in his neobladder. The patient is also noncompliant. He was then seen in our emergency room April 2023 for left upper quadrant ache and left lower quadrant abdominal pain. He was treated for bilateral hydronephrosis. The anatomic abnormalities seen with his orthotopic neobladder and the anastomosis of ureters is apparently a common abnormality. You have stricture of the attachment sites, and develop hydronephrosis over time. After treatment for this problem in our hospital, the patient left AMA. And then presented himself to [facility] [place]. At [facility] he was treated for pyelonephritis and that CAT scan showed stones in the gallbladder and common bile duct. He had a planned cystoscopy June 2023 for removal of retained surgical clips in the bladder and possible fulguration but surgery was canceled by anesthesia for history of noncompliance with medications, a pacer battery that was at end-of-life, and ejection fraction in a patient who did not take congestive heart failure meds. [place] Doing [place] with regards to trying to access healthcare. He will show up in our emergency room or walk-in clinics. [place] He now presented to our emergency room with abdominal pain, altered mental status. He was treated as a UTI. The chronic hydronephrosis is again noted. He initially improved with his encephalopathy and was more awake and alert but was complaining of right upper quadrant and epigastric pain. Abdominal exam revealed a tender abdomen but there is no rebound or guarding and he had hypoactive bowel sounds. The CT scan was reviewed and he continues to have common bile duct stones as well as hydrops of the gallbladder and the gallbladder wall is thickened. 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 Referred to Cardiology Opioid use disorder :treated in [place] for diarrhea with opioids 2002. In remission Chronic systolic (congestive) heart failure: LVEF 25-30% . Echo 04/21/2019 mild dilated LV, severely depressed LVEF 25-30%, mild MR, mod AR, Mild TR, dilation of aorta to 4.4 cm. Repeat echo w CVA 12/2023 and EF 53%, no PFO. History of pacemaker Placed ~ 2019 in [place] and another intervention in [place]. Suspected R atrial lead not in place 06/2023 . Generator replaced 07/18/2023 Uriel ryan @ [facility] Colovesical fistula complication of neobladder surgery done in [place] ~2002, tx medical in [place] for 6 month C. difficile colitis after abx for UTI 04/2023 Divert[address]osis incidental finding on CT abd Anxiety and depression with insomnia, has hx of overuse of benzo and when he runs out, he gets withdrawal. Family counselled to lock meds away and they need to be the ones giving him his meds 01/2023. Hyperlipidemia Hypertension Atrial fibrillation off and on DOAC at his leisure. 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 Personality changed and issues w word finding. Again stopped DOAC for a year then woke 12/13/23 w ss of CVA. Came to ER 12/14/23. Transferred to [facility]. Dysarthria and dysphagia. Improved w dc minced/moist diet w thin liquids. Forget and confused. Decision not to do DOAC bc of neobladder and hematuria w risk of bleed. On statin and ASA. DC was to [facility] 12/26/23 Obstructive uropathy ~2002 radical cystoprostatectomy w urinary diversion and orthotopic neobladder for bladder ca>>LUQ/LLQ ache and seen in ER 04/2023 w b/l L>R hydro>>left AMA>>went to [facility] and tx was for pyelonephritis and had stones in GB and CBD. Planned cystoscopy 06/2023 for removal of retained surgical clips, possible fulguration but surgery cancelled by anesthesia for hx of noncompliance w meds, pacer at end of life, and EF 25% with no CHF meds. CONSULTS | PROCEDURES Consultations: Urology and general surgery Procedures: Head CT is with old stroke. No acute changes. Abdomen CT has markedly distended/hydropic gallbladder with gallbladder wall thickening secondary to obstructing calculi within the cystic duct and distal common bile duct. The extrahepatic biliary tree is not particularly dilated. Ovoid radiodense structure adjacent to the cystic duct measuring 1.4 cm of unknown significance. There is a significant amount of fluid in the david hepatis. Severe bilateral hydronephrosis with renal cortical atrophy and scarring associated with prior bladder surgery and reinsertion of ureters. Fecal impaction. This film was pushed to [facility] for their review. Chest x-ray was done. However there is no final reading or preliminary reading. There is apparently an IT issue going on between our radiology department and [facility] radiology who reads our films. Urine culture has polymicrobial growth including potential pathogens. This is suggestive of contamination. HOSPITAL COURSE Hospital Course: We treated the patient with IV antibiotics, IV fluids, and put a Lombardo in to decompress the bladder. Urology saw the patient and does not feel that he needs to do anything from a surgical point of view since these anatomic findings are felt to be chronic. The patient improved somewhat and that he was less encephalopathic and able to speak to me. is a very concerned and doting spouse and was at the bedside the entire time. She spent the night. This morning he was complaining of right upper quadrant pain and epigastric pain. I reviewed the CT scan where he had the common bile duct stones and enlarged classic bladder in 2022. I asked general surgery to see him. General surgery saw the patient and reviewed the CAT scan, reviewed the labs where he had a normal white cell count and normal LFTs, but felt he did need treatment of the gallbladder. However she also felt that he was way too fragile to be operated on. She felt that he would be a better candidate for interventional radiology to drain the gallbladder percutaneously and having an ERCP to drain the common bile duct. I have reached out to [facility]. [facility] reviewed the films and the packing inspector there felt that the patient would be much better served by going to [facility] since they do not have a packing inspector that is ERCP until June 27. Dr. Dennis from [facility] spoke to me and felt that he could do that procedure. But he asked me to please speak to internal medicine to make sure it was okay for them to accept this patient. I then spoke to Dr. Fairbanks who accepted the patient in transfer. The patient has chronic atrial fibrillation and had SVT last night. Rate controlled during the day, and then back into [facility] with RVR approximately 6:15 PM. I have given him Lopressor 5 mg IV push, and diltiazem 10 mg IV push. He complains of shortness of breath and I have given him Lasix 20 mg IV push. I have explained what I would like to do. His son is at the bedside and agrees to the transfer. I have also spoken to his and she is amenable to transfer to. At discharge his pulse is in the 90s. I am dictating this at 7:15 PM. Blood pressures in the 160s over 70s. He is an alert, very gaunt and cachectic elderly male at 5 foot 8 inches tall, 58.7 kg. Unshaven and disheveled. Voice is slightly dysarthric.Every time he tries to put in his dentures they do not fit and they fall out of his mouth. No JVD but congested throat sounds and lung sounds. Fast irregular rate and rhythm. And abdomen that hurts in the right upper quadrant and epigastrium but no rebound or guarding. He also hurts in the suprapubic area and left lower quadrant. But hurts more in the right side than the left side. Hypoactive bowel sounds. He does follow commands. But can get quite cranky. But he does not raise his voice or physically resist with nursing. Greater than 30 minutes was spent coordinating discharge This document was made in part using voice recognition software. While efforts are made to proofread this document, sound alike and grammatical errors may occur. ALLERGIES Allergies Allergy/AdvReac Type Severity Reaction Status Date / Time No Known Drug Allergies Allergy Verified 12/14/23 17:47 MEDICATIONS Ambulatory Orders Medication Instructions Recorded Confirmed aspirin 81 mg capsule 81 mg PO QPM 02/22/25 02/22/25 atorvastatin 40 mg tablet 40 mg PO QPM 02/22/25 02/22/25 bisoprolol fumarate 5 mg tablet 5 mg PO QPM 02/22/25 02/22/25 cefpodoxime 200 mg tablet 200 mg PO BID #20 tabs 02/22/25 famotidine 20 mg tablet 20 mg PO BID 02/22/25 02/22/25 omeprazole 20 mg capsule,delayed 20 mg PO DAILY 02/22/25 02/22/25 release terbinafine HCl 250 mg tablet 250 mg PO QPM 02/22/25 02/22/25 trazodone 50 mg tablet 100 mg PO QPM 02/22/25 02/22/25 PHYSICAL EXAM AT DISCHARGE Vital Signs: Vital Signs x48h Temp Pulse Pulse Resp BP BP Pulse Ox 02/23/25 18:39 147 H 169/73 H 02/23/25 18:39 147 H 169/73 H 02/23/25 18:35 02/23/25 18:08 36.7 C 144 H 28 H 179/96 H 92 02/23/25 15:36 131 H 150/83 H 02/23/25 15:30 36.9 C 133 H 26 H 150/83 H 93 02/23/25 13:00 36.9 C 107 H 20 140/66 H 94 O2 Flow Rate 02/23/25 18:39 02/23/25 18:39 02/23/25 18:35 4 02/23/25 18:08 4 02/23/25 15:36 02/23/25 15:30 3 02/23/25 13:00 3 LABS 02/23/25 07:44 02/23/25 10:44 Discharge Plan Discharge Patient Disposition: 02 Transfer Acute Care Hosp Condition: Fair Prescriptions: New cefpodoxime 200 mg tablet 200 mg PO BID Qty: 20 0RF Rx Instructions: must administer with a meal/food No Action atorvastatin 40 mg tablet 40 mg PO QPM bisoprolol fumarate 5 mg tablet 5 mg PO QPM famotidine 20 mg tablet 20 mg PO BID omeprazole 20 mg capsule,delayed release(DR/EC) 20 mg PO DAILY terbinafine HCl 250 mg tablet 250 mg PO QPM trazodone 50 mg tablet 100 mg PO QPM aspirin 81 mg capsule 81 mg PO QPM Print Language: Thai Patient Instructions: ED Constipation, ED UTI Cystitis Male Stand Alone Forms: PCP List"
[2025-02-23 20:29] VITALS: BP 143/65; TEMP 97.5; O2SAT 94
[2025-02-23] MEDS: atenoloL 25 MG TABLET PO SCH (21:13)
[2025-02-23] MEDS: NITROGLYCERIN 2% PASTE TOP STA (21:57)
--- NOTE | 2025-02-25 14:50 | CT Report ---
PROCEDURE: HEAD WO INDICATIONS: GENERALIZED WEAKNESS TECHNIQUE: 4.5 mm thick angled axial sections acquired from the foramen magnum to the vertex. For radiation do se reduction, the following was used: automated exposure control, adjustment of mA and/or kV accordi ng to patient size. COMPARISON: None FINDINGS: Image quality: Excellent. The ventricular system and cortical sulci demonstrate atrophy, consistent for patient's stated age. There are areas of hypodensity in the periventricular and subcortical white matter. There is no acut e intra or extra-axial fluid collection. No acute hemorrhage, mass lesion or midline shift. Brainst em is unremarkable. Old right frontal infarction with encephalomalacia. Globes are symmetrical. Sinu ses are aerated. Osseous structures are intact. IMPRESSION: 1. No acute intracranial process. 2. Moderate atrophy and chronic microvascular ischemic changes. Reviewed by: Josie Davis MD on 02/22/2025 12:21 AM PDT Approved by: Josie Davis MD on 02/22/2025 12:21 AM PDT Station ID: [id number]
--- NOTE | 2025-02-25 14:52 | CT Report ---
PROCEDURE: ABDOMEN/PELVIS W INDICATIONS: RLQ PAIN CONTRAST: 100 cc Omnipaque 300 TECHNIQUE: After the administration and intravenous contrast, 5 mm thick sections acquired from the diaphragms t o the symphysis. 5 mm thick coronal reformats were performed. For radiation dose reduction, the fol lowing was used: automated exposure control, adjustment of mA and/or kV according to patient size. COMPARISON: 04/27/2023 FINDINGS: Image quality: Excellent. ABDOMEN: Lung bases: Lung bases are clear. Heart size is normal. Pacemaker leads are seen. Solid organs: Liver and spleen are normal in size and enhancement. Nonenhancing liver cysts are seen . Within the mid liver, there is a poorly defined area of generalized increased enhancement, which is not seen in 202 and measures 4.3 cm. The gallbladder is prominently distended. There is a gallstone seen adjacent to the cystic duct, abimael uring up to 14 mm, as on series 2 image 45 and on series 4 image 48. The common bile duct is mildly e nlarged at 1 cm. Several common duct stones can be seen including proximally on series 4 image 44 and distally on series 4 image 42. Pancreas enhances normally. No adrenal nodules. The kidneys are mildly atrophic. There is moderate to severe bilateral hydronephrosis, left worse clair n right. Peritoneum and bowel: In this patient with this given history, scrutiny is given to the appendix. A normal appendix can be seen, as on series 2 images 97 through 100. No focal right lower quadrant infl ammatory change is seen. A moderate volume of stool can be seen within the rectum, with the rectal vault measuring 7.5 cm whitmore sversely. Stomach, small bowel, and colon loops are normal in caliber and wall thickness. No free ai r is seen. Moderate free fluid can be seen within the david hepatis, without significant ascites seen elsewhere. Nodes and vessels: No retroperitoneal or mesenteric adenopathy. Aorta and inferior vena cava are no rmal in caliber. Atherosclerotic calcification is seen. Miscellaneous: No ventral hernias. PELVIS: Genitourinary: Bladder trabeculation with diverticula formation can be seen. There is prior prostatec marielle with lymph node dissection clips seen. Miscellaneous: No inguinal hernias or adenopathy. Bones: No suspicious bony lesions. No vertebral body compression fractures. IMPRESSION: A distended gallbladder is seen. There is a 14 mm stone seen adjacent to the cystic duct. Differentia l diagnosis includes perforation of the cystic duct. Moderate fluid can be seen within the david hepa tis. Common bile duct stones are also seen, including distally. The common bile duct is mildly enlarged at 10 mm. Normal appendix, without focal right lower quadrant inflammatory change. There is a moderate volume of stool seen within the rectum. Constipation is suspected. Within the mid liver, there is an area of poorly defined increased enhancement measuring 4.3 cm it is not seen in 2023. This is felt most likely to be related to inflammatory change, secondary to the ad jacent biliary abnormalities. Attention should be paid to this focus on future follow-up studies. Significant bilateral hydronephrosis is seen, which has progressed compared to 202. Both kidneys are mildly atrophic. Additional findings: Pacer leads Bladder diverticula Prostatectomy, with lymph node dissection clips Note: No significant discrepancy from the preliminary report. Reviewed by: Adolfo Serra MD on 02/22/2025 7:47 AM [facility] Approved by: Adolfo Serra MD on 02/22/2025 7:47 AM [facility] Station ID: [id number]
--- NOTE | 2025-02-27 15:45 | XRAY Report ---
PROCEDURE: Chest 1 View INDICATIONS: SHORT OF AIR TECHNIQUE: One view of the chest was acquired. COMPARISON: 12/14/2023 FINDINGS: Surgical changes and devices: Right-sided pacemaker with abandoned leads Lungs and pleura: No pleural effusions or pneumothorax. Lungs are clear. Mediastinum: Mediastinal contours appear normal. Heart size is normal. Bones and chest wall: No suspicious bony lesions. Overlying soft tissues appear unremarkable. IMPRESSION: No acute cardiopulmonary findings Reviewed by: Quincy Johnson MD on 02/22/2025 11:37 PM [facility] Approved by: Quincy Johnson MD on 02/22/2025 11:37 PM [facility] Station ID: [id number]
== END 2025-02-23 22:09 | disposition short-term general hospital (02) | DRG 689 ==
LOC: ED 20:33 → MS2 02-22 05:05
PROVIDERS: ADMIT Internal Medicine; ATTEND Internal Medicine